=== PATIENT | male | born 1975 | race Two or more races ===

== ENCOUNTER 2025-04-22 02:01 | Inpatient (IN) | payer OTHER ==
[2025-04-22] VITALS (39 sets, daily range): BP systolic 94–128; BP diastolic 53–81; PULSE 71–111; RESP 15–30; TEMP 98–100.4; O2SAT 83–98
[~2025-04-22] VITALS: Ht 182.9 cm; Wt 128.5 kg
[2025-04-22] MEDS: NALOXONE HCL 1MG/ML 2ML SYRINGE ONE ×3 (02:13→04:17)
--- NOTE | 2025-04-22 02:19 | ED.PDOC ---
Altered Mental Status HPI Comments HPI: 49-year-old male came to EMS were altered level of consciousness. Per EMS, initial call of cardiac arrest, upon arrival, family performing CPR on the patient. SO was on scene 1st, and noted that patient has pulses, presenting with pinpoint pupils, and unresponsive to verbal stimuli. Patient was given 6mg of Narcan, (2mg IN, and another 4mg IV) which gradually woke up the patient. No signs of trauma noted. Family members denies the use of any drugs. Per EMS, patient pupils were pinpoint but improved after he was given Narcan in route. When asked what his name is able to answer. Patient was evaluated immediately and given additional four mg of Narcan IV here and he became much more arousable making eye contact and following commands. Initial Vitals BP: HR: RR: O2: Temp: Past Medical History: Denies Past Surgical History: Denies Social History: Denies ETOH, smoking, and drug use. Medications: Allergies: HPI: Poor Historian. REVIEW OF SYSTEMS: Limited given the patient's altered level of consciousness. CONSTITUTIONAL: Denies acute: fever, diaphoresis, chills, generalized weakness. HEAD: Denies acute: headache, photophobia Eyes: Denies acute: Double vision, vision loss, eye pain, eye discharge. EARS: Denies acute: tinnitus, hearing loss, ear discharge, ear pain, THROAT: Denies acute: sore throat, swelling, difficulty swallowing , pain with swallowing, change in voice. NECK: Denies acute: neck pain, neck swelling, stiff neck. HEART: Denies acute : chest pain, palpitations, LUNGS: Denies acute: SOB, wheezing, cough, hemoptysis ABDOMEN: Denies acute: abdominal pain, Nausea, Vomiting, diarrhea, melena , hematemesis, hematochezia SKIN: Denies acute: rash, redness, lesions, itchiness. EXTREMITIES: Denies acute: calf pain, numbness, tingling, weakness, denies pain in extremity. Denies acute: Low back pain. Neuro: Denies acute: focal neurological deficit, motor or sensory focal neurological deficit, tremors, seizure like activity, confusion, dizziness, change in mental status, loss of bowel or bladder function, cauda equina like symptoms. : Denies acute: dysuria, hematuria, flank pain, increase in urinary frequency. PSYCH: Denies acute: hallucination, suicidal ideation, homicidal ideation. PHYSICAL EXAM: General: ---minimally responsive but moving all four extremities. Head: normocephalic, atraumatic. Neck: supple, trachea is midline, no swelling. Throat: Patient vomiting and likely aspirated. Suction was applied immediately and patient was rolled to his right side. Eyes:, no erythema, no purulent discharge, no proptosis, no icterus. Heart: regular rate, regular rhythm, no significant murmur appreciated. Lungs: no apparent respiratory distress, No wheezing, bilateral rhonchi, no crackles. No stridors Abdomen: non distended, soft, no guarding, no rebound, + bowel sounds. Skin: no petechia, no purpura, no cyanosis, non-pale, not jaundice. Lower extremities: --no - Pitting edema no deformity, no focal swelling, no calf TTP. moves all four extremities. Face: no apparent facial droop. Pupils are reactive to light. ED COURSE: DISCLAIMER: This medical document was created using an electronic medical record system with voice recognition software and computerized dictation system. Although this document has been carefully reviewed, there might still be some phonetic and typographical errors. Occasional wrong-word or "sound-alike" substitutions may have occurred due to the inherent limitations of voice recognition software. These areas are purely typographical due to imperfections of the software programs and do not reflect any compromise in the patient's medical care. Please read the chart carefully and recognize, using context, where these substitutions have occurred. Chief Complaint: ALOC Time Seen by MD: 02:18 Reviewed Notes: Clinical Science Liaison Notes Allergies: Coded Allergies: NO KNOWN ALLERGIES (Unverified , 04/22/25) Information Source: Emergency Med Personnel Mode of Arrival: EMS Past Medical History PAST MEDICAL HISTORY: Denies Surgical History: Denies all surgeries Family History Family History: Reviewed,noncontributory to illness Was a procedure done? Was a procedure done?: No Differential Diagnosis (ALOC) Differential Diagnosis: Other (DDX include CVA, TGA, cerebellar ischemia/infarct, carotid stenosis, Intracranial mass/infection/bleed, encephalopathy, electrolyte abnormality, thyroid disease, hydrocephalus, hypoglycemia, drug toxicity, cardiac arrhythmia, seizure, infection in the elderly, Hyperammonemia., kidney failure., sepsis.) X-Ray, Labs, Meds, VS Vital Signs Date Time Temp Pulse Resp B/P (MAP) Pulse Ox O2 Delivery O2 Flow Rate FiO2 04/22/25 11:15 81 109/67 Facial BiPAP Mask 60 04/22/25 10:00 98.0 84 26 107/66 (80) 98 98.0 04/22/25 09:28 Facial BiPAP Mask 80 04/22/25 08:55 105 118/72 Facial BiPAP Mask 50 04/22/25 08:00 111 20 98 Bi-Pap+ 100 100 04/22/25 08:00 97.1 111 20 121/71 (88) 98 97.1 04/22/25 07:03 98.0 97 25 127/78 93 100 98.0 04/22/25 07:03 25 93 Bi-Pap+ 100 100 04/22/25 07:03 97 127/78 Facial BiPAP Mask 100 04/22/25 06:01 28 87 Non-Rebreather 15 100 100 04/22/25 04:00 74 04/22/25 02:12 92 04/22/25 02:01 98.2 88 22 143/82 92 98.2 Lab Test 04/22/25 11:02 04/22/25 08:39 04/22/25 06:22 04/22/25 05:18 Range/Units Blood Gas Specimen Type Arterial Arterial Arterial Blood Gas Sample Site Left radial Right radial Right radial Blood Gas Patient Temperature 37.0 37.0 37.0 Arterial Blood Date Drawn [id number] Arterial Blood pH 7.316 L 7.181 *L 7.194 *L 7.350-7.450 Arterial Blood Partial Pressure CO2 41.2 56.0 H 47.9 35.0-48.0 mmHg Arterial Blood Partial Pressure O2 121.3 H 293.8 H 70.3 L 83.0-108.0 mmHg Arterial Blood HCO3 20.6 L 20.5 L 18.0 L 21.0-28.0 mmol/L Arterial Blood Oxygen Saturation 98.2 H 99.5 H 89.7 L 94.0-98.0 % Arterial Blood Base Excess -5.3 L -8.6 L -10.1 L -2.0-3.0 mmol/L Arterial Blood Oxyhemoglobin 96.8 98.2 H 88.7 L 94.0-98.0 % Arterial Blood Carboxyhemoglobin 0.5 0.4 L 0.4 L 0.5-1.5 % Arterial Blood Methemoglobin 0.9 0.9 0.7 0.0-1.5 % Luis A Test Yes Yes Yes Blood Gas Total Hemoglobin 15.80 16.10 15.10 13.5-17.5 g/dL Blood Gas Set Respiration Rate 12.0 12.0 Blood Gas Modality Mask - bipap Mask - bipap Mask - nrb FiO2 % 80.0 100.0 100.0 Blood Gas EPAP 8 8 Blood Gas IPAP 18 12 Blood Gas Critical Value Read Back Yes Yes Yes Blood Gas Notified Whom Dr. norris kowalski Blood Gas Notified Time [id number] Blood Gas Notified By Blood Gas Liter Flow 15.00 Troponin I High Sensitivity 38 </=54 ng/L Lipase 31 12-53 U/L Test 04/22/25 04:39 04/22/25 03:40 04/22/25 03:25 04/22/25 02:35 Range/Units Lactic Acid Level 4.4 *H 5.2 *H 0.4-2.0 mmol/L Urine Color Colorless Yellow Urine Clarity Clear Clear Urine pH 5.5 5.0-9.0 Urine Specific [place] 1.008 1.001-1.035 Urine Protein Negative Negative Urine Ketones Negative Negative Urine Blood Negative Negative /uL Urine Nitrite Negative Negative Urine Bilirubin Negative Negative Urine Urobilinogen Normal Negative mg/dL Urine Leukocyte Esterase Negative Negative /uL Urine RBC 1 0 - 3 /hpf Urine Microscopic WBC 1 0-3 /HPF Urine Squamous Epithelial Cells None seen <5 /hpf Urine Bacteria None seen None Seen /hpf Urine Hyaline Casts Few 0 - 2 /lpf Urine Glucose 3+ H Normal mg/dL Urine Opiates Screen Neg NEGATIVE Urine Fentanyl Screen Pos NEGATIVE Urine Barbiturates Screen Neg NEGATIVE Urine Phencyclidine Screen Neg NEGATIVE Urine Amphetamines Screen Neg NEGATIVE Urine Benzodiazepines Screen Neg NEGATIVE Urine Cocaine Screen Neg NEGATIVE Urine Cannabinoids Screen Neg NEGATIVE Troponin I High Sensitivity 26 </=54 ng/L Test 04/22/25 02:30 Range/Units White Blood Count 12.4 H 4.4-10.8 10^3/uL Red Blood Count 4.08 L 4.5-5.90 10^6/uL Hemoglobin 12.9 L 13.5-17.5 g/dL Hematocrit 39.2 L 41.0-53.0 % Mean Corpuscular Volume 96.0 80.0-100.0 fL Mean Corpuscular Hemoglobin 31.7 28.0-32.0 pg Mean Corpuscular Hemoglobin Concent 33.0 32.0-36.0 g/dL Red Cell Distribution Width 13.9 11.8-14.3 % Platelet Count 284 140-450 10^3/uL Mean Platelet Volume 7.8 6.9-10.8 fL Neutrophils (%) (Auto) 78.3 37.0-80.0 % Lymphocytes (%) (Auto) 17.3 10.0-50.0 % Monocytes (%) (Auto) 3.6 0.0-12.0 % Eosinophils (%) (Auto) 0.6 0.0-7.0 % Basophils (%) (Auto) 0.2 0.0-2.0 % Neutrophils # (Auto) 9.7 H 1.6-8.6 10 ^3/uL Lymphocytes # (Auto) 2.1 0.4-5.4 10 ^3/uL Monocytes # (Auto) 0.4 0-1.3 10 ^3/uL Eosinophils # (Auto) 0.1 0-0.8 10 ^3/uL Basophils # (Auto) 0 0-0.2 10 ^3/uL Nucleated Red Blood Cells 0.1 % Sodium Level 135 L 136-145 mmol/L Potassium Level 3.4 L 3.5-5.1 mmol/L Chloride Level 102 98-107 mmol/L Carbon Dioxide Level 19 L 20-31 mmol/L Anion Gap 14 5-15 Blood Urea Nitrogen 10 9-23 mg/dL Creatinine 1.14 0.700-1.30 mg/dL Glomerular Filtration Rate Calc 80 >90 mL/min BUN/Creatinine Ratio 8.8 L 10.0-20.0 Serum Glucose 209 H 74-106 mg/dL Calcium Level 7.4 L 8.7-10.4 mg/dL Magnesium Level 2.2 1.6-2.6 mg/dL Total Bilirubin 0.2 0.2-1.0 mg/dL Aspartate Amino Transferase (AST) 41 H 13-40 U/L Alanine Aminotransferase (ALT) 34 7-40 U/L Alkaline Phosphatase 55 46-116 U/L Troponin I High Sensitivity 21 </=54 ng/L Total Protein 6.0 5.7-8.2 g/dL Albumin 3.9 3.2-4.8 g/dL Plasma/Serum Blood Alcohol 150.1 H <10 mg/dL [place] [address] Ph: [phone] DIAGNOSTIC IMAGING Diagnostic Imaging Report : [id number] Signed PATIENT: FELICIANO COLÓN ACCT: [id number] UNIT: [id number] : 1975 LOC: ER ROOM / BED: / AGE / SEX: 49 / M ADM STATUS: REG ER SERVICE 0215 ORDERING PHYSICIAN: JUDY KOWALSKI DO PROCEDURE(s): HWOCT - HEAD WITHOUT CONTRAST REASON: ALOC ORDER NUMBER(s): [id number], ACCESSION NUMBER(s): [id number] EXAM: CT HEAD WITHOUT CONTRAST INDICATION: ALOC TECHNIQUE: CT of the head without intravenous contrast. Radiation Dose : 1. Head: CT Dose: CTDI volume is 59.31 mGy. Dose-length product is 1.71 mGy*cm The dose indicators for CT are the volume Computed Tomography (CT) Dose Index (CTDIvol) and the Dose Length Product (DLP), and are measured in units of mGy and mGy-cm, respectively. These indicators are not patient dose, but values generated from the CT scanner acquisition factors. The report includes radiation exposure data for exposures received during this examination. COMPARISON: None FINDINGS: Brain: No acute hemorrhage, mass effect, or cerebral edema. CSF Spaces: Size and morphology within normal limits. Bones/Soft Tissues: No acute findings. Orbits/Sinuses/Mastoids: Iovg-qi-wdzlwvsw pansinus disease with air-fluid level in the right maxillary sinus. The orbits and mastoid cells are unremarkable. IMPRESSION: 1. No acute intracranial abnormality. 2. Paranasal sinus disease. Radiation optimization: All CT scans at this facility use at least one of these dose optimization techniques: automated exposure control mA and/or kV adjustment per patient size (includes targeted exams where dose is matched to clinical indication) or iterative reconstruction. ATED BY: JUAN BENDER MD DICTATED DATE/TIME: 04/22/25446 SIGNED BY: JUAN BENDER MD SIGNED DATE/TIME: 04/22/25446 CC: [place] [address] Ph: [phone] DIAGNOSTIC IMAGING Diagnostic Imaging Report : [id number] Signed PATIENT: FELICIANO COLÓN ACCT: [id number] UNIT: [id number] : 1975 LOC: ER ROOM / BED: / AGE / SEX: 49 / M ADM STATUS: REG ER SERVICE 021 ORDERING PHYSICIAN: JUDY KOWALSKI DO PROCEDURE(s): CXRP - CHEST PORTABLE REASON: ALOC ORDER NUMBER(s): [id number], ACCESSION NUMBER(s): [id number] CHEST RADIOGRAPH Indication: ALOC Technique: 1 view Comparison: None FINDINGS: Lines and Tubes: None Lungs: Patchy consolidations within the perihilar and bfoel-qygszmf-glil-left upper lungs. Pleura: No effusion or pneumothorax. Cardiomediastinal contours: Unremarkable. Other: No acute osseous abnormality. IMPRESSION: 1. Right worse than left airspace disease suggesting multifocal pneumonia, aspiration or hemorrhage in the appropriate clinical setting. ATED BY: JUAN BENDER MD DICTATED DATE/TIME: 04/22/25442 SIGNED BY: JUAN BENDER MD SIGNED DATE/TIME: 04/22/25442 CC: [place] [address] Ph: [phone] DIAGNOSTIC IMAGING Diagnostic Imaging Report : [id number] Signed PATIENT: FELICIANO COLÓN ACCT: [id number] UNIT: [id number] : 1975 LOC: ER ROOM / BED: / AGE / SEX: 49 / M ADM STATUS: REG ER SERVICE 0506 ORDERING PHYSICIAN: JUDY KOWALSKI DO PROCEDURE(s): CTACH - CT ANGIO CHEST CONTRAST REASON: sob/ cxr findings. ORDER NUMBER(s): [id number], ACCESSION NUMBER(s): [id number] CTA Chest with intravenous contrast INDICATION: sob/ cxr findings. COMPARISON: None TECHNIQUE: Multidetector spiral CTA of the chest was performed of the chest with intravenous contrast. PULMONARY ANGIOGRAPHY PROTOCOL was utilized using a bolus- tracking technique centered on the main pulmonary artery. Axial, coronal and sagittal multiplanar and MIP reformats were performed. Radiation Dose : 1. Chest: CTDI volume is 29.6 mGy. Dose-length product is 2133.63 mGy*cm The dose indicators for CT are the volume Computed Tomography (CT) Dose Index (CTDIvol) and the Dose Length Product (DLP), and are measured in units of mGy and mGy-cm, respectively. These indicators are not patient dose, but values generated from the CT scanner acquisition factors. The report includes radiation exposure data for exposures received during this examination. Findings: Pulmonary artery: No large central or large segmental pulmonary embolism. Patient motion artifact partially obscures detail and limits the ability to exclude smaller and/or more distal segmental and subsegmental pulmonary emboli. The main pulmonary artery measures 2.9 cm and the ascending thoracic aorta measures 3.4 cm. Atherosclerotic vascular calcifications. Lower neck: Normal thyroid. Lungs: Extensive multifocal consolidative infiltrate throughout all lung zones consistent with multifocal pneumonia. No evidence of pleural effusion or pne umothorax. Heart/Vascular Structures: Normal heart size. No pericardial effusion. Lymph Nodes: No adenopathy Musculoskeletal: No acute osseous abnormality. Soft tissues: Normal. Upper abdomen: Limited portions of the upper abdomen are unremarkable. Scattered subcentimeter benign-appearing hepatic cysts. IMPRESSION: 1. No definite large central or large segmental pulmonary embolism. Patient motion artifact obscures detail and limits the ability to exclude smaller and/or more distal segmental and subsegmental pulmonary emboli. 2. Extensive multifocal consolidative pulmonary infiltrate within all lung zones consistent with multifocal pneumonia. 3. Subcentimeter benign-appearing hepatic cysts. ATED BY: JUAN F EDMONDS MD DICTATED DATE/TIME: 04/22/25654 SIGNED BY: JUAN F EDMONDS MD SIGNED DATE/TIME: 04/22/25 0655 CC: Time of 1ST Reevaluation: 02:19 Reevaluation 1ST: Unchanged Time of 2ND Reevaluation: 06:41 Reevaluation 2ND: Improved Patient Education/Counseling: Diagnosis, Treatment Family Education/Counseling: Diagnosis, Treatment Comments Patient Was Evaluated immediately. Suctioning was performed that is patient was vomiting here. Family at bedside later indicated the patient was also aspirating at home when this event happened. Given Solu-Medrol and a breathing treatment and Narcan multiple boluses. Patient was started on antibiotics for aspiration pneumonia. Patient was given fluids. ABG showed patient is acidotic. Two amps of bicarb were ordered. Decadron was ordered and Narcan drip since the patient has been requiring multiple boluses from time to time. Patient was placed on a continuous albuterol nebulizer. CTA angiogram of the chest was obtained to rule out possible PE versus hemorrhage status post CPR. Patient was placed on a BiPAP. Patient is doing significantly better with the BiPAP socks his present. Has improved. He feels much calmer better. We will repeat ABGs were sharply. Patient is given a small dose of Ativan to help him relax because he still feels claustrophobic and feels somewhat anxious. The care of this patient was signed out to my colleague Dr. Warren to reassessed the patient and see if there is a need for intubation. SEPSIS Sepsis Screen Physician Orders Repairer Shoe Sticks (04/22/25 ) Chest Portable (04/22/25 02:15) Electrocardigram (04/22/25 02:15) Head Without Contrast (04/22/25 02:15) Ct Angio Chest Contrast (04/22/25 05:06) Abg W/ Co-Ox (04/22/25 06:14) Abg W/ Co-Ox (04/22/25 07:58) BIPAP (04/22/25 07:00) Vital Signs Date Time Temp Pulse Resp B/P (MAP) Pulse Ox O2 Delivery O2 Flow Rate FiO2 04/22/25 11:15 81 109/67 Facial BiPAP Mask 60 04/22/25 10:00 98.0 84 26 107/66 (80) 98 98.0 04/22/25 09:28 Facial BiPAP Mask 80 04/22/25 08:55 105 118/72 Facial BiPAP Mask 50 8/23/25 08:00 111 20 98 Bi-Pap+ 100 100 04/22/25 08:00 97.1 111 20 121/71 (88) 98 97.1 04/22/25 07:03 98.0 97 25 127/78 93 100 98.0 04/22/25 07:03 25 93 Bi-Pap+ 100 100 04/22/25 07:03 97 127/78 Facial BiPAP Mask 100 04/22/25 06:01 28 87 Non-Rebreather 15 100 100 04/22/25 04:00 74 04/22/25 02:12 92 04/22/25 02:01 98.2 88 22 143/82 92 98.2 Laboratory Tests Test 04/22/25 02:30 04/22/25 02:35 04/22/25 04:39 White Blood Count 12.4 10^3/uL (4.4-10.8) H Lactic Acid Level 5.2 mmol/L (0.4-2.0) *H 4.4 mmol/L (0.4-2.0) *H Departure 1 Departure Time of Disposition: 04:30 Impression: Primary Impression: Drug overdose Additional Impressions: Mild fentanyl abuse Alcohol abuse Altered level of consciousness Aspiration pneumonia Acute respiratory distress Disposition: ADMITTED INPATIENT Admit to: ICU Condition: Critical Discharged With: Self Critical Care Note Critical Care Time?: Yes (>90min-critical care time only) Heart Score Heart Score: Heart Score Response (Comments) Value History N/A 0 EKG N/A 0 Age N/A 0 Risk Factors N/A 0 Troponin N/A 0 Total 0 I personally scribed for JUDY KOWALSKI DO ([email or web address]) on 04/22/25 at 02:19. Electronically submitted by Gordon Bates ([facility]). I personally scribed for JUDY KOWALSKI DO ([email or web address]) on 04/22/25 at 02:19. Electronically submitted by Gordon Bates ([facility]). I personally scribed for JUDY KOWALSKI DO (DVFARMI) on 04/22/25 at 05:15. Electronically submitted by Gordon Bates ([facility]). I personally scribed for JUDY KOWALSKI DO ([email or web address]) on 04/22/25 at 06:22. Electronically submitted by Sid Duarte ([facility]). JUDY KOWALSKI DO Apr 22, 2025 02:19
[2025-04-22] MEDS: PIPERACILLIN-TAZOB 3.375GM 100 ML IV ONE (02:44)
[2025-04-22 02:51] LABS: Hematocrit 39.2 % (41.0-53.0); Hemoglobin 12.9 g/dL (13.5-17.5); Mean Corpuscular Hemoglobin 31.7 pg (28.0-32.0); Mean Corpuscular Volume 96.0 fL (80.0-100.0); Nucleated Red Blood Cells % 0.1 %
[2025-04-22] MEDS: methylPREDNISolone SOD SUCC 125 MG/2 ML VL ONE (03:05)
[2025-04-22] MEDS: methylPREDNISolone SOD SUCC 125 MG/2 ML VL IV ONE (03:05)
[2025-04-22 03:07] LABS: Alanine Aminotransferase 34 U/L (7-40); Albumin 3.9 g/dL (3.2-4.8); Alkaline Phosphatase 55 U/L (46-116); Anion Gap 14 (5-15); BUN/Creatinine Ratio 8.8 (10.0-20.0); Blood Urea Nitrogen 10 mg/dL (9-23); Chloride 102 mmol/L (98-107); Magnesium 2.2 mg/dL (1.6-2.6); Total Protein 6.0 g/dL (5.7-8.2)
[2025-04-22 03:31] LABS: Bilirubin, Total 0.2 mg/dL (0.2-1.0); Calcium 7.4 mg/dL (8.7-10.4); Carbon Dioxide 19 mmol/L (20-31); Glucose 209 mg/dL (74-106); Potassium 3.4 mmol/L (3.5-5.1); Sodium 135 mmol/L (136-145)
[2025-04-22 03:35] LABS: Lactic Acid w/Reflex 5.2 mmol/L (0.4-2.0)
[2025-04-22 03:51] LABS: Urine Protein, UAD Negative (Negative)
[2025-04-22 04:04] LABS: Amphetamine Screen, Urine Neg (NEGATIVE); Barbiturate Scree,Urine Neg (NEGATIVE); Benzodiazephine Screen, Urine Neg (NEGATIVE); Cocaine Screen, Urine Neg (NEGATIVE); Opiate Scree,Urine Neg (NEGATIVE)
[2025-04-22 04:06] LABS: Cannabinoid Screen, Urine Neg (NEGATIVE); Phencyclidine Screen, Urine Neg (NEGATIVE)
--- NOTE | 2025-04-22 04:45 | DVH ---
CHEST RADIOGRAPH Indication: ALOC Technique: 1 view Comparison: None FINDINGS: Lines and Tubes: None Lungs: Patchy consolidations within the perihilar and ijtwk-mdzsamv-vyrh-left upper lungs. Pleura: No effusion or pneumothorax. Cardiomediastinal contours: Unremarkable. Other: No acute osseous abnormality. IMPRESSION: 1. Right worse than left airspace disease suggesting multifocal pneumonia, aspiration or hemorrhage i n the appropriate clinical setting.
--- NOTE | 2025-04-22 04:50 | DVH ---
EXAM: CT HEAD WITHOUT CONTRAST INDICATION: ALOC TECHNIQUE: CT of the head without intravenous contrast. Radiation Dose : 1. Head: CT Dose: CTDI volume is 59.31 mGy. Dose-length product is 1.71 mGy*cm The dose indicators for CT are the volume Computed Tomography (CT) Dose Index (CTDIvol) and the Dose Length Product (DLP), and are measured in units of mGy and mGy-cm, respectively. These indicators are not patient dose, but values generated from the CT scanner acquisition factors. The report includes radiation exposure data for exposures received during this examination. COMPARISON: None FINDINGS: Brain: No acute hemorrhage, mass effect, or cerebral edema. CSF Spaces: Size and morphology within normal limits. Bones/Soft Tissues: No acute findings. Orbits/Sinuses/Mastoids: Ntvz-vc-uvjghaqw pansinus disease with air-fluid level in the right maxillar y sinus. The orbits and mastoid cells are unremarkable. IMPRESSION: 1. No acute intracranial abnormality. 2. Paranasal sinus disease. Radiation optimization: All CT scans at this facility use at least one of these dose optimization kamaljit hniques: automated exposure control mA and/or kV adjustment per patient size (includes targeted exam s where dose is matched to clinical indication) or iterative reconstruction.
[2025-04-22] MEDS: NALOXONE HCL 1MG/ML 2ML SYRINGE IV ONE (05:15)
[2025-04-22] MEDS: IOHEXOL 350 MG/ML 100ML IJ ONE (05:25)
[2025-04-22] MEDS: SODIUM CHLORIDE 0.9% 1,000 ML IV ONE (05:44)
[2025-04-22] MEDS: IPRATROPIUM BROM 0.5 MG/2.5ML INH SOL NEB ONE ×2 (06:01→07:03)
[2025-04-22] MEDS: ALBUTEROL SULF 2.5 MG/0.5ML(0.5%) NEB SOLN NEB ONE ×2 (06:01→07:03)
[2025-04-22] MEDS: SODIUM BICARB 8.4% 50Meq/50ml SYR Vial IV ONE (06:30)
--- NOTE | 2025-04-22 06:57 | DVH ---
CTA Chest with intravenous contrast INDICATION: sob/ cxr findings. COMPARISON: None TECHNIQUE: Multidetector spiral CTA of the chest was performed of the chest with intravenous contrast . PULMONARY ANGIOGRAPHY PROTOCOL was utilized using a bolus-tracking technique centered on the main p ulmonary artery. Axial, coronal and sagittal multiplanar and MIP reformats were performed. Radiation Dose : 1. Chest: CTDI volume is 29.6 mGy. Dose-length product is 2133.63 mGy*cm The dose indicators for CT are the volume Computed Tomography (CT) Dose Index (CTDIvol) and the Dose Length Product (DLP), and are measured in units of mGy and mGy-cm, respectively. These indicators are not patient dose, but values generated from the CT scanner acquisition factors. The report includes radiation exposure data for exposures received during this examination. Findings: Pulmonary artery: No large central or large segmental pulmonary embolism. Patient motion artifact partially obscures de tail and limits the ability to exclude smaller and/or more distal segmental and subsegmental pulmonar y emboli. The main pulmonary artery measures 2.9 cm and the ascending thoracic aorta measures 3.4 cm. Atheroscl erotic vascular calcifications. Lower neck: Normal thyroid. Lungs: Extensive multifocal consolidative infiltrate throughout all lung zones consistent with multif ocal pneumonia. No evidence of pleural effusion or pneumothorax. Heart/Vascular Structures: Normal heart size. No pericardial effusion. Lymph Nodes: No adenopathy Musculoskeletal: No acute osseous abnormality. Soft tissues: Normal. Upper abdomen: Limited portions of the upper abdomen are unremarkable. Scattered subcentimeter benign -appearing hepatic cysts. IMPRESSION: 1. No definite large central or large segmental pulmonary embolism. Patient motion artifact obscures detail and limits the ability to exclude smaller and/or more distal segmental and subsegmental pulmon david emboli. 2. Extensive multifocal consolidative pulmonary infiltrate within all lung zones consistent with mult ifocal pneumonia. 3. Subcentimeter benign-appearing hepatic cysts.
[2025-04-22] MEDS: IPRATROPIUM BROM 0.5 MG/2.5ML INH SOL ONE (07:04)
[2025-04-22] MEDS: ALBUTEROL SULF 2.5 MG/0.5ML(0.5%) NEB SOLN ONE (07:05)
--- NOTE | 2025-04-22 07:12 | ECG ---
[facility] Test Date: 2025-04-22 Test Time: 02:12:31 Pat Name: FELICIANO COLÓN Department: [facility] ED Patient ID: [id number] Room: [address] [place] [address] Gender: M Photovoltaic Installation Technician: TEN : 1975 Requested By: JUDY KOWALSKI Order Number: [id number] Reading MD: Boris Bravo Measurements Intervals [place] Rate: 92 P: -58 FL: 243 QRS: 28 QRSD: 92 T: 9 QT: 391 QTc: 484 Interpretive Statements Sinus or ectopic atrial rhythm Prolonged FL interval RSR' in V1 or V2, probably normal variant Borderline repolarization abnormality Borderline prolonged QT interval Electronically Signed On 04-25-2025 14:35:49 PDT by Boris Bravo Please click the below link to view image of tracing.
[2025-04-22] MEDS: ONDANSETRON HCL 4 MG/2 ML VIAL ONE (07:13)
[2025-04-22 07:35] LABS: Base Excess -10.1 mmol/L (-2.0-3.0)
[2025-04-22] MEDS: LORazepam 2MG/ML-1ML VIAL IV ONE ×2 (07:45→10:54)
[2025-04-22] MEDS: NALOXONE HCL 2 MG in DEXTROSE 495 ML IV ONE (08:26)
[2025-04-22 09:03] LABS: Base Excess -8.6 mmol/L (-2.0-3.0)
[2025-04-22] MEDS ORDERED: ONDANSETRON HCL 4 MG/2 ML VIAL IV PRN (12:00)
[2025-04-22] MEDS ORDERED: MORPHINE SULFATE INJ 2 MG/ml SYRG IV PRN ×2 (12:00)
[2025-04-22] MEDS ORDERED: NITROGLYCERIN 0.4 MG SL TAB SL PRN (12:00)
[2025-04-22 12:42] LABS: Base Excess -5.3 mmol/L (-2.0-3.0)
--- NOTE | 2025-04-22 12:43 | DVHHPRES ---
History of Present Illness Resident Creating Document: RAAD ALVARES RESIDENT History of Present Illness Mr. Heredia, a 49-year-old male was brought in by EMS with altered level of consciousness. Initial EMS dispatch was for cardiac arrest; upon arrival, family was performing CPR. mutual fund analyst noted the patient had a pulse, pinpoint pupils, and was unresponsive to verbal stimuli. Narcan was administered (2 mg IN, 4 mg IV), resulting in gradual improvement in responsiveness. No signs of trauma were observed. Family denied any drug use. En route, EMS noted improvement in pupil size following Narcan. On arrival, the patient was able to answer questions and was given an additional 4 mg IV Narcan, after which he became more alert, made eye contact, and followed commands. Patient is on BIPAP improving ABG. [place] [phone] authorized. PMHX: No chronic disease, not on any home Meds. PSHX: No surgical history. FH: Non contributory. Social History: Lifetime nonsmoker, as per patient occasional Cigar, occasional binge drinking, 12 pack of beer, patient, family, collateral all history negative for any other substance abuse, lifetime, no daily alcohol. As per patient's patient is, CDL, no previous history of any other intoxications. Review of Systems Constitutional: Yes: Chills, Sweats, Weakness, Malaise; No: Fever, Other Eyes: No: Pain, Vision change, Conjunctivae inflammation, Eyelid inflammation, Other, Redness ENT: No: Ear pain, Ear discharge, Nose pain, Nose discharge, Nose congestion, Mouth pain, Mouth swelling, Throat pain, Throat swelling, Other Respiratory: Shortness of breath, SOB with excertion, Wheezing; No: Cough, Dry, Hemoptysis, Pleuritic Pain, Sputum, Wheezing, Other Cardiovascular: No: Chest Pain, Palpitations, Orthopnea, Paroxysmal Noc. Dyspn ea, Edema, Lt Headedness, Other Gastrointestinal: Nausea, Vomiting; No: Abdominal Pain, Diarrhea, Constipation, Melena, Hematochezia, Other Genitourinary: No Dysuria, No Frequency, No Incontinence, No Hematuria, No Retention, No Other Musculoskeletal: No: other, neck pain, shoulder pain, arm pain, back pain, hand pain, leg pain, foot pain Skin: No: Rash, Lesions, Jaundice, Bruising, Other Neurological: No: Weakness, Numbness, Incoordination, Change in speech, Confusion, Seizures, Other Allergies: Coded Allergies: NO KNOWN ALLERGIES (Unverified , 04/22/25) Medications Current Medications Medications Dose Ordered Sig/Ramonita Route Start Time Stop Time Status Last Admin Dose Admin Ondansetron HCl 4 mg Q4HP PRN IV 04/22/25 12:00 Morphine Sulfate 2 mg Q4HPRN PRN IV 04/22/25 12:00 Enoxaparin Sodium 40 mg DAILY SC 04/22/25 12:00 04/27/25 23:55 Nitroglycerin 0.4 mg Q5MINP PRN SL 04/22/25 12:00 Morphine Sulfate 2 mg Q30M PRN IV 04/22/25 12:00 Exam Vital Signs Vital Signs Date Time Temp Pulse Resp B/P (MAP) Pulse Ox O2 Delivery O2 Flow Rate FiO2 04/22/25 11:15 81 109/67 Facial BiPAP Mask 60 04/22/25 08:00 20 98 04/22/25 08:00 97.1 97.1 04/22/25 06:01 15 General Appearance: Alert, Cooperative, mild distress HEENT: Atraumatic, PERRLA, EOMI, Mucous membr. moist/pink, Other (Patient on BIPAP. ) Respiratory: Other (Bilateral equal air movement, crackles, rales. No tenderness. ) Cardiovascular: Regular rate, Normal S1, Normal S2, No murmurs Abdominal: Normal bowel sounds, Soft, No tenderness, No hepatospenomegaly, No masses Extremities: No clubbing, No cyanosis, No edema, Normal pulses, No tenderness/swelling Skin: No rashes, No breakdown, No significant lesion Neuro: Other (Patient is on BiPAP, limited examination bilateral lower leg e xtremity, ophthalmic extremely grossly normal, bilateral upper and lower leg touch sensation, recent. Patient responses with nonverbal commands due to the BiPAP. Denies any pain, numbness, tingling.) Psych/Mental Status: Mental status NL, Other (Limited examination.) Labs/Xrays Labs Test 04/22/25 12:03 04/22/25 08:39 04/22/25 06:22 04/22/25 05:18 Range/Units Blood Gas Specimen Type Arterial Blood Gas Sample Site Right radial Blood Gas Patient Temperature 37.0 Arterial Blood Date Drawn [id number] Arterial Blood pH 7.181 *L 7.350-7.450 Arterial Blood Partial Pressure CO2 56.0 H 35.0-48.0 mmHg Arterial Blood Partial Pressure O2 293.8 H 83.0-108.0 mmHg Arterial Blood HCO3 20.5 L 21.0-28.0 mmol/L Arterial Blood Oxygen Saturation 99.5 H 94.0-98.0 % Arterial Blood Base Excess -8.6 L -2.0-3.0 mmol/L Arterial Blood Oxyhemoglobin 98.2 H 94.0-98.0 % Arterial Blood Carboxyhemoglobin 0.4 L 0.5-1.5 % Arterial Blood Methemoglobin 0.9 0.0-1.5 % Luis A Test Yes Blood Gas Total Hemoglobin 16.10 13.5-17.5 g/dL Blood Gas Set Respiration Rate 12.0 Blood Gas Modality Mask - bipap FiO2 % 100.0 Blood Gas EPAP 8 Blood Gas IPAP 12 Blood Gas Critical Value Read Back Yes Blood Gas Notified Whom Dr. norris rm Blood Gas Notified Time [id number] Blood Gas Notified By Blood Gas Liter Flow 15.00 Troponin I High Sensitivity 38 </=54 ng/L Test 04/22/25 03:40 04/22/25 02:30 Range/Units Urine Color Colorless Yellow Urine Clarity Clear Clear Urine pH 5.5 5.0-9.0 Urine Specific [place] 1.008 1.001-1.035 Urine Protein Negative Negative Urine Ketones Negative Negative Urine Blood Negative Negative /uL Urine Nitrite Negative Negative Urine Bilirubin Negative Negative Urine Urobilinogen Normal Negative mg/dL Urine Leukocyte Esterase Negative Negative /uL Urine RBC 1 0 - 3 /hpf Urine Microscopic WBC 1 0-3 /HPF Urine Squamous Epithelial Cells None seen <5 /hpf Urine Bacteria None seen None Seen /hpf Urine Hyaline Casts Few 0 - 2 /lpf Urine Glucose 3+ H Normal mg/dL Urine Opiates Screen Neg NEGATIVE Urine Fentanyl Screen Pos NEGATIVE Urine Barbiturates Screen Neg NEGATIVE Urine Phencyclidine Screen Neg NEGATIVE Urine Amphetamines Screen Neg NEGATIVE Urine Benzodiazepines Screen Neg NEGATIVE Urine Cocaine Screen Neg NEGATIVE Urine Cannabinoids Screen Neg NEGATIVE White Blood Count 12.4 H 4.4-10.8 10^3/uL Red Blood Count 4.08 L 4.5-5.90 10^6/uL Hemoglobin 12.9 L 13.5-17.5 g/dL Hematocrit 39.2 L 41.0-53.0 % Mean Corpuscular Volume 96.0 80.0-100.0 fL Mean Corpuscular Hemoglobin 31.7 28.0-32.0 pg Mean Corpuscular Hemoglobin Concent 33.0 32.0-36.0 g/dL Red Cell Distribution Width 13.9 11.8-14.3 % Platelet Count 284 140-450 10^3/uL Mean Platelet Volume 7.8 6.9-10.8 fL Neutrophils (%) (Auto) 78.3 37.0-80.0 % Lymphocytes (%) (Auto) 17.3 10.0-50.0 % Monocytes (%) (Auto) 3.6 0.0-12.0 % Eosinophils (%) (Auto) 0.6 0.0-7.0 % Basophils (%) (Auto) 0.2 0.0-2.0 % Neutrophils # (Auto) 9.7 H 1.6-8.6 10 ^3/uL Lymphocytes # (Auto) 2.1 0.4-5.4 10 ^3/uL Monocytes # (Auto) 0.4 0-1.3 10 ^3/uL Eosinophils # (Auto) 0.1 0-0.8 10 ^3/uL Basophils # (Auto) 0 0-0.2 10 ^3/uL Nucleated Red Blood Cells 0.1 % Sodium Level 135 L 136-145 mmol/L Potassium Level 3.4 L 3.5-5.1 mmol/L Chloride Level 102 98-107 mmol/L Carbon Dioxide Level 19 L 20-31 mmol/L Anion Gap 14 5-15 Blood Urea Nitrogen 10 9-23 mg/dL Creatinine 1.14 0.700-1.30 mg/dL Glomerular Filtration Rate Calc 80 >90 mL/min BUN/Creatinine Ratio 8.8 L 10.0-20.0 Serum Glucose 209 H 74-106 mg/dL Calcium Level 7.4 L 8.7-10.4 mg/dL Magnesium Level 2.2 1.6-2.6 mg/dL Total Bilirubin 0.2 0.2-1.0 mg/dL Aspartate Amino Transferase (AST) 41 H 13-40 U/L Alanine Aminotransferase (ALT) 34 7-40 U/L Alkaline Phosphatase 55 46-116 U/L Total Protein 6.0 5.7-8.2 g/dL Albumin 3.9 3.2-4.8 g/dL Plasma/Serum Blood Alcohol 150.1 H <10 mg/dL SEPSIS Sepsis Screen Date sepsis recognized/suspect: Apr 22, 2025 Time Sepsis recognized/suspect: 08 Recent Procedure: No On Antibiotic Therapy: No Respiratory Rate >20: No Heart Rate >90: No Temp<36 C (96.8 F) or >38.3 C: No SBP <90 or MAP <65 mmHG: No New Acute Mental Status Change: No Is the patient on CPAP, BIPAP,: No Physician Orders Ct Angio Chest Contrast (04/22/25 05:06) Abg W/ Co-Ox (04/22/25 06:14) Abg W/ Co-Ox (04/22/25 07:58) BIPAP (04/22/25 07:00) Admit (04/22/25 11:50) Allergies (04/22/25 11:50) Code Status (04/22/25 11:50) Oxygen Per Hour (04/22/25 11:50) Ondansetron Hcl (Zofran) (04/22/25 12:00) Fall Risk Precautions In Place QSHIFT (04/22/25 11:50) Complete Blood Count (04/23/25 04:00) Comprehensive Metabolic Panel (04/23/25 04:00) Npo (Nothing By Mouth) Diet (04/22/25 Lunch) Echo 2d Mode Cardiac Dop (04/22/25 11:50) Condition: Critical (04/22/25 11:50) Bedrest With Bathroom Privileg (04/22/25 11:50) Morphine Sulfate Injection (04/22/25 12:00) Enoxaparin Sodium (Lovenox) (04/22/25 12:00) Nitroglycerin Sublingual (Ntrostat Subli (04/22/25 12:00) Morphine Sulfate Injection (04/22/25 12:00) Oxygen By Nasal Cannula (04/22/25 11:50) Stat Ekg For Chest Pain (04/22/25 11:50) Notify Md Of Changes From Base (04/22/25 11:50) Credit Authorizer For 24 Hours (04/22/25 11:50) Emergency Dysrhythmia Protocol (04/22/25 11:50) Rhythm Strips Once Every Shift (04/22/25 11:50) Lactic Acid W/ Reflex Order (04/22/25 11:55) Lipase (04/22/25 11:55) Respiratory Culture W/ Gs (04/22/25 12:02) Mrsa Screen (04/22/25 12:02) Covid19 Antigen Anel (04/22/25 ) Rapid Influenza A&B (04/22/25 12:02) Vital Signs Date Time Temp Pulse Resp B/P (MAP) Pulse Ox O2 Delivery O2 Flow Rate FiO2 04/22/25 11:15 81 109/67 Facial BiPAP Mask 60 04/22/25 09:28 Facial BiPAP Mask 80 04/22/25 08:55 105 118/72 Facial BiPAP Mask 50 04/22/25 08:00 111 20 98 Bi-Pap+ 100 100 04/22/25 08:00 97.1 111 20 121/71 (88) 98 97.1 04/22/25 07:03 25 93 Bi-Pap+ 100 100 04/22/25 07:03 97 127/78 Facial BiPAP Mask 100 04/22/25 06:01 28 87 Non-Rebreather 15 100 100 Laboratory Tests Test 04/22/25 02:30 04/22/25 02:35 04/22/25 04:39 04/22/25 12:03 White Blood Count 12.4 10^3/uL (4.4-10.8) H Lactic Acid Level 5.2 mmol/L (0.4-2.0) *H 4.4 mmol/L (0.4-2.0) *H Pending Medications Medications Dose Ordered Sig/Ramonita Route Start Time Stop Time Status Last Admin Dose Admin Albuterol 2.5 mg ONCE ONCE NEB 04/22/25 05:15 04/22/25 05:16 DC 04/22/25 06:01 2.5 MG Albuterol 20 mg ONCE ONCE NEB 04/22/25 06:45 04/22/25 06:46 DC 04/22/25 07:03 20 MG Dexamethasone Sodium Phosphate 20 mg ONCE ONCE IV 04/22/25 06:30 04/22/25 06:31 DC 04/22/25 06:30 20 MG Ipratropium [place] 0.5 mg ONCE ONCE NEB 04/22/25 05:15 04/22/25 05:16 DC 04/22/25 06:01 0.5 MG Ipratropium [place] 1 mg ONCE ONCE NEB 04/22/25 06:45 04/22/25 06:46 DC 04/22/25 07:03 1 MG Lorazepam 0.5 mg ONCE ONCE IV 04/22/25 07:30 04/22/25 07:31 DC 04/22/25 07:45 0.5 MG Lorazepam 0.5 mg ONCE ONCE IV 04/22/25 10:15 04/22/25 10:16 DC 04/22/25 10:54 0.5 MG Methylprednisolone Sodium Succinate 125 mg ONCE ONCE IV 04/22/25 03:00 04/22/25 03:01 DC 04/22/25 03:05 125 MG Naloxone HCl 4 mg ONCE ONCE IV 04/22/25 05:15 04/22/25 05:16 DC 04/22/25 05:15 4 MG Naloxone HCl 4 mg STK-MED ONCE .ROUTE 04/22/25 02:13 04/22/25 02:10 DC 04/22/25 02:13 4 MG Naloxone HCl 4 mg STK-MED ONCE .ROUTE 04/22/25 02:56 04/22/25 02:53 DC 04/22/25 03:05 4 MG Naloxone HCl 4 mg STK-MED ONCE .ROUTE 04/22/25 04:17 04/22/25 04:14 DC 04/22/25 04:17 4 MG Ondansetron HCl 8 mg STK-MED ONCE .ROUTE 04/22/25 07:09 04/22/25 07:06 DC 04/22/25 07:13 8 MG Piperacillin Sod/ Tazobactam Sod 100 ml @ 100 mls/hr ONCE ONCE IV 04/22/25 02:30 04/22/25 03:29 DC 04/22/25 02:44 100 MLS/HR Sodium Bicarbonate 100 ml ONCE ONCE IV 04/22/25 06:30 04/22/25 06:31 DC 04/22/25 06:30 100 ML Sodium Chloride 1,000 ml @ 1,000 mls/hr Q1H ONCE IV 04/22/25 04:00 04/22/25 04:59 DC 04/22/25 05:44 1,000 MLS/HR Assessment/Plan Assessment/Plan #Aspiration pneumonia Gram +ve/ Gram-ve/ atypical: Blood culture, sputum culture, MRSA check, viral panel, IV antibiotics azithromycin and ceftriaxone to continue. CXR shows right worse than left, multifocal pneumonia. #Sepsis, at presentation SIRS response With leukocytosis, tachypnea and tachycardia, with possible intrathoracic source. sepsis bundle with IV fluids, careful hydration restrictive due to secondary risk of ARDS , keep a MAP over 65. Ruled out other infections , UTI. follow up CBC. #Hypoxic / hypercapnic respiratory failure: On BiPAP improving, in recent blood gas. Wean BiPAP. Target SpO2> 94%, discussed with RT at bedside. CTPE Ruled out PE. #Cardiac arrest, less likely, workup in progress: Troponin negative, EKG unremarkable for acute ST-T changes, keep the patient on telemetry, close monito ring, echo, keeping MAP over 65. No known cardiac disease or cardiovascular risk factors noted so far. #metabolic/ toxic encephalopathy: Likely due to multifactorial severe disease, Altered level of conscious, alcohol intoxication. Head noncontrast CT negative, interval neurological function improved. Denies any focal neuro deficits. #Non anion gap metabolic acidosis: Likely due to above , multifactorial, lactic acidosis, trending down, repeat. #Acute alcohol intoxication: Patient admitted having a binge drinking with 12 pack beer at home. As per the patient and the family corroborated no long-term daily alcohol abuse. Bedside counseling done for alcohol-related health side effects, counseling for alcohol cessation. No prior history of alcohol related hospitalization, rehab, ICU / intubation care. #Mild hypokalemia: Could be due to vomiting, replenished, recheck. #Mild hypocalcemia, 7.4: Replenished, recheck. #Borderline QT prolongation, keep magnesium above 2, potassium above 4, close monitoring. Avoid QT prolonging drugs. Possible Right axis deviation. #Subcentimeter benign-appearing hepatic cysts. [place] Barriers to discharge: medical management ongoing, ICU level of care, within next 24-48 hours downgrade to the [facility]. Case discussed with Dr. Flowers. Code status: Full code. Complex patient care discussion needed total 39 minutes. Discussed with the daughter, , at bedside, and the patient, improved mentation. Plan discussed with: Patient, Spouse, Daughter, Other (Primary team RN) My Orders Orders - GIORGIO,RAAD RESIDENT Procedure Category Date Status Time Admit ADMIT 04/22/25 Transmitted 11:50 Allergies KJ 04/22/25 In Process 11:50 Code Status CODE 04/22/25 Transmitted 11:50 Oxygen Per Hour RT 04/22/25 Transmitted 11:50 Ondansetron Hcl PHA 04/22/25 In Process (Zofran) 12:00 Fall Risk Precautions KJ 04/22/[address] 11:50 Complete Blood Count LAB 04/23/25 Verified 04:00 Comprehensive LAB 04/23/25 Verified Metabolic Panel 04:00 Npo (Nothing By DIET 04/22/25 Transmitted Mouth) Diet Lunch Echo 2d Mode Cardiac US 04/22/25 Logged DOP 11:50 Condition: Critical KJ 04/22/25 In Process 11:50 Bedrest With Bathroom KJ 04/22/25 In Process Privileg 11:50 Morphine Sulfate PHA 04/22/25 In Process Injection 12:00 Enoxaparin Sodium PHA 04/22/25 In Process (Lovenox) 12:00 Nitroglycerin PHA 04/22/25 In Process Sublingual (Ntrostat 12:00 Morphine Sulfate PHA 04/22/25 In Process Injection 12:00 Oxygen By Nasal RT 04/22/25 Transmitted Cannula 11:50 Stat Ekg For Chest KJ 04/22/25 In Process Pain 11:50 Notify Of Changes KJ 04/22/25 In Process From Base 11:50 Credit Authorizer For KJ 04/22/25 In Process 24 Hours 11:50 Emergency Dysrhythmia KJ 04/22/25 In Process Protocol 11:50 Rhythm Strips Once KJ 04/22/25 In Process Every Shift 11:50 Lactic Acid W/ Reflex LAB 04/22/25 In Process Order 11:55 Lipase LAB 04/22/25 In Process 11:55 Respiratory Culture KHANH 04/22/25 Logged W/ Gs 12:02 Mrsa Screen KHANH 04/22/25 Logged 12:02 Covid19 Antigen Anel LAB 04/22/25 Logged Rapid Influenza A&B LAB 04/22/25 Logged 12:02 Date of Service: Apr 22, 2025 Billing Provider: MUKUND FLOWERS MD Common Visit Codes: [id number] INP/OBS CARE (HIGH) Secondary Visit Codes: [id number] CARE PLAN 30 MINUTES RAAD ALVARES RESIDENT Apr 22, 2025 12:43
[2025-04-22 13:04] LABS: Lactic Acid w/Reflex 6.6 mmol/L (0.4-2.0)
[2025-04-22] MEDS: LACTATED RINGER'S 500 ML IV ONE (13:15)
[2025-04-22] MEDS: DOXYCYCLINE 100MG/100ML 100 ML IV SCH (13:39)
[2025-04-22] MEDS: ENOXAPARIN SOD 40 MG/0.4 ML SYRINGE SC SCH (13:40)
[2025-04-22 14:40] LABS: COVID19 ANTIGEN SOFIA FIA NEGATIVE (NEGATIVE)
[2025-04-22] MEDS: LACTATED RINGER'S 1,000 ML IV SCH (14:43)
[2025-04-22] MEDS: CALCIUM GLUC 1,000mg/50ml-NS 50 ML IV ONE (14:43)
[2025-04-22] MEDS: THIAMINE 100mg/ml INJ (200mg/2ml VIAL) IV ONE (14:43)
[2025-04-22] MEDS: LORazepam 2MG/ML-1ML VIAL IV PRN (14:43)
[2025-04-22] MEDS: FOLIC ACID 1 MG in D5W 5% 50 ML INJ ONE (16:10)
[2025-04-22 16:15] LABS: Lactic Acid w/Reflex 7.8 mmol/L (0.4-2.0)
--- NOTE | 2025-04-22 17:36 | DVHSR ---
APPROVED REPORT EXAM: Two-dimensional and M-mode echocardiogram with Doppler and color Doppler. Blood Pressure: 109/67 mmHg INDICATION Rule out structural heart disease RISK FACTORS Height: , Weight: DIMENSIONS LVDd4.8 (3.8-5.7cm)LA (2D)3.8 (1.9-4.0cm)Aortic Root4.3 (2.0-3.7cm) LVDs3.3 (2.5-4.0cm)LA (MM) (1.9-4.0cm)Aortic Cusp Exc2.3 (1.5-2.0cm) EF (%) 60.0 (55-70%)Rt. Atrium4.2 (1.9-4.0cm)Asc. Aorta3.4 cm IVSd1.0 (0.7-1.1cm)RV (D) (1.8-2.4cm) PWd0.9 (0.7-1.1cm) Mitral Valve MitralMitral Stenosis E wave0.77m/sMV Mean GR.mmHg A wave0.73m/sMV Peak GR.mmHg E/A ratio1.12D MVAcm2 DECEL [id number] 1/2 Tim[place] Aortic Valve Aortic ValveAortic Stenosis V10.93m/Jethro Mean GR.3mmHg V21.26m/Jethro Peak GR.6mmHg LVOT Diameter2.3 (1.8-2.4cm)Doppler AVA3.07cm2 Pulmonic Valve V20.97m/s Other Information Technically limited study due to body habitus, patient sitting up on bipap. Conclusion lvef 65% normal rv functon normal atria no severe valve abnormalities noted
[2025-04-22] MEDS: ACETAMINOPHEN 325 MG TAB PO PRN (18:01)
[2025-04-23] VITALS (33 sets, daily range): BP systolic 103–143; BP diastolic 49–84; PULSE 77–107; RESP 24–39; TEMP 98.8–100.1; O2SAT 89–99
[2025-04-23 03:51] LABS: Hematocrit 41.4 % (41.0-53.0); Hemoglobin 14.1 g/dL (13.5-17.5); Mean Corpuscular Hemoglobin 32.1 pg (28.0-32.0); Mean Corpuscular Volume 93.8 fL (80.0-100.0); Nucleated Red Blood Cells % 0.0 %
[2025-04-23 04:09] LABS: Alanine Aminotransferase 34 U/L (7-40); Albumin 3.9 g/dL (3.2-4.8); Anion Gap 10 (5-15); BUN/Creatinine Ratio 9.4 (10.0-20.0); Bilirubin, Total 0.6 mg/dL (0.2-1.0); Carbon Dioxide 27 mmol/L (20-31); Chloride 102 mmol/L (98-107); Potassium 4.4 mmol/L (3.5-5.1); Sodium 139 mmol/L (136-145); Total Protein 6.5 g/dL (5.7-8.2)
[2025-04-23 04:10] LABS: Alkaline Phosphatase 36 U/L (46-116); Blood Urea Nitrogen 8 mg/dL (9-23); Calcium 8.6 mg/dL (8.7-10.4); Glucose 134 mg/dL (74-106)
--- NOTE | 2025-04-23 05:36 | DVH ---
CHEST RADIOGRAPH Indication: SOB Technique: 1 view Comparison: XY CHEST PORTABLE on DOS: 04/22/25 FINDINGS: Lines and Tubes: External leads and tubing. Lungs/Pleura: Unchanged. Cardiomediastinum: Unchanged. Other: Unchanged. IMPRESSION: 1. No significant change from the previous study. Persistent bilateral multifocal airspace disease.
[2025-04-23] MEDS: LORazepam 2MG/ML-1ML VIAL IV ONE (08:01)
[2025-04-23 08:12] LABS: Base Excess 0.2 mmol/L (-2.0-3.0)
[2025-04-23] MEDS ORDERED: THIAMINE 100mg/ml INJ (200mg/2ml VIAL) IV SCH (10:00)
[2025-04-23] MEDS: THIAMINE HCL 100 MG TAB PO SCH (10:02)
[2025-04-23] MEDS: FOLIC ACID 1 MG TAB PO SCH (10:02)
[2025-04-23] MEDS: IPRATROPIUM BROM 0.5 MG/2.5ML INH SOL NEB SCH (11:36)
[2025-04-23] MEDS: ALBUTEROL SULF 2.5 MG/0.5ML(0.5%) NEB SOLN NEB SCH (11:37)
[2025-04-23] MEDS: PIPERACILLIN-TAZO 4.5GM 100 ML IV SCH (11:39)
[2025-04-23] MEDS: BUMETANIDE 2.5mg/10ml (0.25 mg/ml) INJ IV ONE (11:39)
--- NOTE | 2025-04-23 13:53 | DVHPN2 ---
Subjective Seen and examined at bedside. Patients spouse and sister at bedside. 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 Per family, patient is usually in good health and is active. But patient reports he has been having cold like symptoms for the past 7 days and did not seek treatment. Will attempt to take off BIPAP and try High Flow 60/90%. Patient and family advised if no improvement or worsening of symptoms will need to intubate. Changes from previous H/P or p: No Changes Eyes: No Pain, No Vision change, No Conjunctivae inflammation, No Eyelid inflammation, No Other, No Redness ENT: No Ear pain, No Ear discharge, No Nose pain, No Nose discharge, No Nose congestion, No Mouth pain, No Mouth swelling, No Throat pain, No Throat swelling, No Other Cardiovascular: No Chest Pain, No Palpitations, No Orthopnea, No Paroxysmal Noc. Dyspnea, No Edema, No Lt Headedness, No Other Respiratory: No Cough, No Dry; Shortness of breath, SOB with excertion, W heezing; No Hemoptysis, No Pleuritic Pain, No Sputum, No Other Gastrointestinal: No Nausea, No Vomiting, No Abdominal Pain, No Diarrhea, No Constipation, No Melena, No Hematochezia, No Other Genitourinary: No Dysuria, No Frequency, No Incontinence, No Hematuria, No Retention, No Other Musculoskeletal: No other, No neck pain, No shoulder pain, No arm pain, No back pain, No hand pain, No leg pain, No foot pain Skin: No Rash, No Lesions, No Jaundice, No Bruising, No Other Objective Vitals Vital Signs Date Time Temp Pulse Resp B/P (MAP) Pulse Ox O2 Delivery O2 Flow Rate FiO2 04/23/25 11:39 127/49 04/23/25 11:37 100 95 Nasal BiPAP Mask 90 04/23/25 09:00 29 04/23/25 08:00 98.8 98.8 04/22/25 20:00 15 Intake/Output Intake and Output 04/23/25 07:00 Intake Total 3600 ml Output Total 5250 ml Balance -1650 ml Intake Oral 75 ml IV Total 3525 ml Output Urine Total 5250 ml Exam Gen: in bed, mild distress Cvs: N S1/S2, RRR Resp: Coarse breath sounds and wheezy Abd: Soft, NT Decorating Supervisor: AAO x 4 Medications Current Medications Medications Dose Ordered Sig/Ramonita Route Start Time Stop Time Status Last Admin Dose Admin Ondansetron HCl 4 mg Q4HP PRN IV 04/22/25 12:00 Morphine Sulfate 2 mg Q4HPRN PRN IV 04/22/25 12:00 Enoxaparin Sodium 40 mg DAILY SC 04/22/25 12:00 04/27/25 23:55 04/23/25 10:02 40 MG Nitroglycerin 0.4 mg Q5MINP PRN SL 04/22/25 12:00 Morphine Sulfate 2 mg Q30M PRN IV 04/22/25 12:00 Doxycycline Hyclate 100 ml @ 50 mls/hr Q12H IV 04/22/25 12:45 04/23/25 11:57 50 MLS/HR Thiamine HCl 100 mg DAILY IV 04/23/25 10:00 UNV Thiamine HCl 100 mg DAILY PO 04/23/25 10:00 04/23/25 10:02 100 MG Lorazepam 1 mg Q4HP PRN IV 04/22/25 14:15 04/23/25 11:39 1 MG Folic Acid 1 mg DAILY PO 04/23/25 10:00 04/23/25 10:02 1 MG Acetaminophen 650 mg Q6HP PRN PO 04/22/25 18:00 04/22/25 18:01 650 MG Albuterol 2.5 mg Q6HR NEB 04/23/25 12:00 04/23/25 11:37 2.5 MG Ipratropium [place] 0.5 mg Q6HR NEB 04/23/25 12:00 04/23/25 11:36 0.5 MG Piperacillin Sod/ Tazobactam Sod 100 ml @ 25 mls/hr Q6HR IV 04/23/25 12:00 04/23/25 11:39 25 MLS/HR Laboratory Results Laboratory Tests 04/23/25 03:04 Chemistry Test 04/23/25 03:04 Albumin 3.9 g/dL (3.2-4.8) Calcium Level 8.6 mg/dL (8.7-10.4) L Total Protein 6.5 g/dL (5.7-8.2) LFT Test 04/23/25 03:04 Alanine Aminotransferase (ALT) 34 U/L (7-40) Alkaline Phosphatase 36 U/L (46-116) L Aspartate Amino Transferase (AST) 60 U/L (13-40) H Total Bilirubin 0.6 mg/dL (0.2-1.0) Urinalysis Test 04/22/25 03:40 Urine Color Colorless (Yellow) Urine Clarity Clear (Clear) Urine pH 5.5 (5.0-9.0) Urine Specific [place] 1.008 (1.001-1.035) Urine Protein Negative (Negative) Urine Ketones Negative (Negative) Urine Blood Negative /uL (Negative) Urine Nitrite Negative (Negative) Urine Bilirubin Negative (Negative) Urine Urobilinogen Normal mg/dL (Negative) Urine Leukocyte Esterase Negative /uL (Negative) Urine RBC 1 /hpf (0 - 3) Urine Microscopic WBC 1 /HPF (0-3) Urine Squamous Epithelial Cells None seen /hpf (<5) Urine Bacteria None seen /hpf (None Seen) Urine Hyaline Casts Few /lpf (0 - 2) Urine Glucose 3+ mg/dL (Normal) H Blood Gas Results Test 04/23/25 05:33 Arterial Blood pH 7.324 (7.350-7.450) FiO2 % 90.0 Microbiology Microbiology Date/Time Source Procedure Growth Status 04/22/25 13:30 Nose MRSA Screen - Final Complete Assessment/Plan Assessment/Plan # Acute Hypoxic Resp Failure - On BIPAP, attempt HiFlow # Sepsis due to Aspiration PNA - Zosyn and Doxy - Sputum Cultures # Alcohol withdrawal - Last drink was 04/21/25 - MVT/Thiamine/Folic Acid # Possible Pulm Edema?? - Bumex IV Critical care time 90 mins Unstable to transfer to [place] due to resp failure. Plan discussed with: Patient, Spouse, Other (sister) My Orders Orders - MUKUND JESSICA MD Procedure Category Date Status Time Albuterol Medneb PHA 04/23/25 In Process (Ventolin Medneb) 12:00 Ipratropium Medneb PHA 04/23/25 In Process (Atrovent Medneb) 12:00 Respiratory Culture KHANH 04/23/25 In Process W/ Gs 10:57 Sputum Induction RT 04/23/25 Logged 10:57 Piperacillin-Tazo PHA 04/23/25 In Process 4.5gm (Zosyn 4.5gm/100 12:00 Basic Metabolic Panel LAB 04/24/25 Verified 04:00 Complete Blood Count LAB 04/24/25 Verified 04:00 Lactic Acid W/ Reflex LAB 04/24/25 Verified Order 04:00 B-Type Natriuretic LAB 04/24/25 Verified Peptide 04:00 * Stucco Worker CONS 04/23/25 Transmitted Consult Bumetanide Injection PHA 04/23/25 Logged (Bumex Injection) 18:00 Bumetanide Injection PHA 04/23/25 Transmitted (Bumex Injection) 14:45 Hiv 1&2 Antibody LAB 04/23/25 Logged 13:44 Hemoglobin A1c LAB 04/23/25 Logged 13:44 Prothrombin Time W/ LAB 04/24/25 Verified INR 04:00 Partial LAB 04/24/25 Verified Thromboplastin Time 04:00 Thyroid Stimulating LAB 04/23/25 Logged Hormone 13:44 Chest Portable XY 04/24/25 Logged 04:00 Bilat Lower Dvt US 04/23/25 Transmitted 13:47 Date of Service: Apr 23, 2025 Billing Provider: MUKUND JESSICA MD Common Visit Codes: [id number] CARE 30-74 MIN, [id number] CARE-EACH +30MIN MUKUND JESSICA MD Apr 23, 2025 13:53
--- NOTE | 2025-04-23 14:27 | DVH ---
Bilateral lower extremity venous duplex Clinical History: dvt Comparison: None Technique: Duplex Doppler evaluation of the deep venous systems of both lower extremities from the common femora l veins to the popliteal veins including color Doppler and spectral/pulsed waveform analysis was perf ormed. Findings: RIGHT SIDE: The common femoral vein demonstrates appropriate compressibility and waveform variability. There is compressibility/patency of the great saphenous vein at the proximal thigh. The femoral vein demonstrates appropriate compressibility and waveform variability. The deep femoral vein demonstrates appropriate compressibility and waveform variability. The popliteal vein demonstrates appropriate compressibility and waveform variability. There is normal compressibility at the tibioperoneal trunk. LEFT SIDE: The common femoral vein demonstrates appropriate compressibility and waveform variability. There is compressibility/patency of the great saphenous vein at the proximal thigh. The femoral vein demonstrates appropriate compressibility and waveform variability. The deep femoral vein demonstrates appropriate compressibility and waveform variability. The popliteal vein demonstrates appropriate compressibility and waveform variability. There is normal compressibility at the tibioperoneal trunk. Impression: 1. No right or left femoropopliteal venous thrombosis.
[2025-04-23] MEDS: BUMETANIDE 1mg/4ml VIAL (0.25mg/ml) IV ONE (15:42)
[2025-04-23] MEDS: BUMETANIDE 1mg/4ml VIAL (0.25mg/ml) IV SCH (17:38)
[2025-04-23] MEDS ORDERED: DEXMEDETOMIDINE HCL IN D5W 100 ML IV SCH (19:45)
[2025-04-23] MEDS: POTASSIUM CHL 20 Meq TABLET PO ONE (21:08)
--- NOTE | 2025-04-23 22:57 | DVHPN2 ---
Progress Note - Dictate Date Seen: Apr 23, 2025 Medical Necessity Reason Pt with a Central, PICC or Fol: Yes The following are medically ne: Munoz Catheter Reason for munoz catheter: Strict I&O Subjective Patient seen and examined at bedside. On supplemental oxygen Overnight events reviewed. vital signs Vital Sign Date Time Temp Pulse Resp B/P (MAP) Pulse Ox O2 Delivery O2 Flow Rate FiO2 04/23/25 22:00 87 04/23/25 22:00 39 98 Hi-Flow Heated NC+ 55 90 90 04/23/25 22:00 110/60 (77) 04/23/25 20:00 98.9 98.9 Total Intake and Output 04/22/25 04/22/25 04/23/25 15:00 23:00 07:00 Intake Total 1275 ml 1225 ml 1100 ml Output Total 2500 ml 2750 ml Balance 1275 ml -1275 ml -1650 ml medications Current Medications Medications Dose Ordered Sig/Ramonita Route Start Time Stop Time Status Last Admin Dose Admin Ondansetron HCl 4 mg Q4HP PRN IV 04/22/25 12:00 Morphine Sulfate 2 mg Q4HPRN PRN IV 04/22/25 12:00 Enoxaparin Sodium 40 mg DAILY SC 04/22/25 12:00 04/27/25 23:55 04/23/25 10:02 40 MG Nitroglycerin 0.4 mg Q5MINP PRN SL 04/22/25 12:00 Morphine Sulfate 2 mg Q30M PRN IV 04/22/25 12:00 Doxycycline Hyclate 100 ml @ 50 mls/hr Q12H IV 04/22/25 12:45 04/23/25 11:57 50 MLS/HR Thiamine HCl 100 mg DAILY IV 04/23/25 10:00 UNV Thiamine HCl 100 mg DAILY PO 04/23/25 10:00 04/23/25 10:02 100 MG Lorazepam 1 mg Q4HP PRN IV 04/22/25 14:15 04/23/25 17:38 1 MG Folic Acid 1 mg DAILY PO 04/23/25 10:00 04/23/25 10:02 1 MG Acetaminophen 650 mg Q6HP PRN PO 04/22/25 18:00 04/22/25 18:01 650 MG Albuterol 2.5 mg Q6HR NEB 04/23/25 12:00 04/23/25 18:19 2.5 MG Ipratropium [place] 0.5 mg Q6HR NEB 04/23/25 12:00 04/23/25 18:19 0.5 MG Piperacillin Sod/ Tazobactam Sod 100 ml @ 25 mls/hr Q6HR IV 04/23/25 12:00 04/23/25 17:38 25 MLS/HR Bumetanide 1 mg BIDD IV 04/23/25 18:00 04/23/25 17:38 1 MG objective Gen.: Patient lying in bed in no apparent distress. On supplemental oxygen. Head: Normocephalic, atraumatic. Eyes: EOMI/PERRLA. Ears: Normal hearing. Normal anatomy. Neck/trachea: Trachea midline, supple. Nose: Normal external anatomy. Mouth: Moist mucous membranes. Chest: Decreased air entry bilaterally. No wheezing or rhonchi. Cardiovascular: Positive S1, positive S2. Regular rate and rhythm. Abdomen: Positive bowel sounds in all 4 quadrants. Soft, non-tender, non- distended. : Deferred. Rectal: Deferred. Skin: Warm, dry. Intact. Extremities: 2+ radial pulses bilaterally. No lower extremity edema. Neuro: Awake, alert, oriented x3. No gross motor or sensory deficits. Cranial nerves II through XII intact. Gait not assessed. laboratory and microbiology Laboratory Tests 04/23/25 03:04 Test 04/23/25 03:04 Range/Units Serum Glucose 134 H 74-106 mg/dL Assessment/Plan Impression: Acute hypoxic respiratory failure Dependence on supplemental oxygen Multifocal pneumonia Atelectasis Lactic acidosis Plan: Patient transitioned from BiPAP Currently on high flow O2 at 60 LPM, FiO2 90% Titrate to keep O2 sats above 92%. Taper O2 as tolerated, transition to low flow BiPAP PRN Monitor respiratory status closely d/t increased oxygen requirements CXR notable for persistent bilateral multifocal airspace disease. Continue bronchodilators. Continue antibiotics Incentive spirometry Diurese with Bumex as tolerated Monitor renal function. Monitor electrolytes. Supplement as necessary. Monitor ins and outs. Lactic acid level normalized. DVT prophylaxis. Prognosis: Poor given patient's multiple co-morbidities. Condition: Critical Rest of plan per hospitalist and other consultants. A total of 35 minutes of critical care time was spent reviewing the patient record, examining the patient, making a diagnostic and therapeutic plan, discussing this plan with the medical personnel, following up on diagnostic studies and following the patient for clinical stability excluding any and all procedures. At least 50% of this time was spent in direct, [id number] contact. Thank you, Dr. Dumont, for allowing me to participate in this patient's care. Further recommendations will depend on the patient's clinical course. Please do not hesitate to contact me if you have any questions or concerns. This medical document was created using an electronic medical record system with [employer] dictation system. Although these documentations are being carefully reviewed, there may still be some phonetic and typographical changes. The errors are purely typographical, due to imperfection on the software program, and do not reflect any compromise in the patient's medical care. Plan discussed with: Other (VALORIE Vasquez) Critical Care Time(min): 35 IVETT FREEDMAN MD Apr 23, 2025 22:57
[2025-04-24] VITALS (67 sets, daily range): BP systolic 86–117; BP diastolic 51–71; PULSE 69–95; RESP 17–42; TEMP 98.3–100; O2SAT 92–99
[2025-04-24 04:01] LABS: Hematocrit 40.0 % (41.0-53.0); Hemoglobin 13.9 g/dL (13.5-17.5); Mean Corpuscular Hemoglobin 31.9 pg (28.0-32.0); Mean Corpuscular Volume 91.8 fL (80.0-100.0); Nucleated Red Blood Cells % 0.0 %
[2025-04-24 04:09] LABS: Chloride 93 mmol/L (98-107); Potassium 3.5 mmol/L (3.5-5.1); Sodium 136 mmol/L (136-145)
[2025-04-24 04:10] LABS: Anion Gap 7 (5-15); Calcium 9.2 mg/dL (8.7-10.4)
[2025-04-24 04:15] LABS: BUN/Creatinine Ratio 12.0 (10.0-20.0); Blood Urea Nitrogen 12 mg/dL (9-23); Carbon Dioxide 36 mmol/L (20-31); Glucose 122 mg/dL (74-106)
[2025-04-24 04:17] LABS: INR 1.01 (0.9-1.15); Partial Thromboplastin Time 34.2 SEC (24.5-34.5); Prothrombin Time 10.7 sec (9.3-11.8)
--- NOTE | 2025-04-24 04:55 | DVH ---
CHEST RADIOGRAPH Indication: sob Technique: Single frontal view of the chest was obtained Comparison: XY CHEST PORTABLE on DOS: 04/23/25 FINDINGS: Lines and Tubes: None Lungs: Patchy bilateral airspace disease similar to prior study. Pleura: No effusion. No pneumothorax. Cardiomediastinal contours: Unremarkable Bones: No acute osseous abnormality. IMPRESSION: 1. Multifocal airspace disease which may represent pneumonia. Appearance is similar to the prior ronnie dy.
[2025-04-24 06:40] LABS: Base Excess 8.7 mmol/L (-2.0-3.0)
--- NOTE | 2025-04-24 11:40 | MEDREC ---
[facility] ASP Intervention Section I [facility] ASP Intervention: Deescalate AB based on CS, Review courses of therapy (Routine anaerobic coverage for aspiration pneumonia is not recommended unless imaging indicates lung abscess or empyema. Please consider de-escalate zosyn to ceftriaxone (no pseudomonal risk). If doxycycline is used for atypical coverage for CAP, please consider D/C doxycycline after 5 day) HANS JOHNS [facility] RESIDENT Apr 24, 2025 11:40
--- NOTE | 2025-04-24 14:41 | DVHPN2 ---
Progress Note Date Seen: Apr 24, 2025 Medical Necessity Reason Pt with a Central, PICC or Fol: Yes The following are medically ne: Munoz Catheter Reason for munoz catheter: Strict I&O Subjective Patient reports: No new complaints Review of Systems: HEENT:Normal, CVS:Normal, RESPIRATORY:Normal, GI:Normal, :Normal, MSK:Normal, NEURO:Normal Objective vital signs Vital Sign Date Time Temp Pulse Resp B/P (MAP) Pulse Ox O2 Delivery O2 Flow Rate FiO2 04/24/25 14:31 80 31 95 45.0 60 04/24/25 12:30 04/24/25 12:00 Hi-Flow Heated NC+ 04/24/25 12:00 98.8 98.8 Total Intake and Output 04/23/25 04/23/25 04/24/25 15:00 23:00 07:00 Intake Total 850 ml 845 ml 425 ml Output Total 5950 ml 1700 ml Balance 850 ml -5105 ml -1275 ml medications Current Medications Medications Dose Ordered Sig/Ramonita Route Start Time Stop Time Status Last Admin Dose Admin Ondansetron HCl 4 mg Q4HP PRN IV 04/22/25 12:00 Morphine Sulfate 2 mg Q4HPRN PRN IV 04/22/25 12:00 Enoxaparin Sodium 40 mg DAILY SC 04/22/25 12:00 04/27/25 23:55 04/24/25 10:06 40 MG Nitroglycerin 0.4 mg Q5MINP PRN SL 04/22/25 12:00 Morphine Sulfate 2 mg Q30M PRN IV 04/22/25 12:00 Doxycycline Hyclate 100 ml @ 50 mls/hr Q12H IV 04/22/25 12:45 04/24/25 12:58 50 MLS/HR Thiamine HCl 100 mg DAILY IV 04/23/25 10:00 UNV Thiamine HCl 100 mg DAILY PO 04/23/25 10:00 04/24/25 10:06 100 MG Lorazepam 1 mg Q4HP PRN IV 04/22/25 14:15 04/24/25 14:13 1 MG Folic Acid 1 mg DAILY PO 04/23/25 10:00 04/24/25 10:06 1 MG Acetaminophen 650 mg Q6HP PRN PO 04/22/25 18:00 04/22/25 18:01 650 MG Albuterol 2.5 mg Q6HR NEB 04/23/25 12:00 04/24/25 12:10 2.5 MG Ipratropium [place] 0.5 mg Q6HR NEB 04/23/25 12:00 04/24/25 12:10 0.5 MG Piperacillin Sod/ Tazobactam Sod 100 ml @ 25 mls/hr Q6HR IV 04/23/25 12:00 04/24/25 12:58 25 MLS/HR Bumetanide 1 mg BIDD IV 04/23/25 18:00 04/24/25 06:04 1 MG Examination: GENERAL:Normal, HEENT:Normal, NECK:Normal, LUNGS:Normal, LUNGS:Abnormal (on high flow oxygen, rales), CVS:Normal, ABDOMEN:Normal, MSK:Normal, SKIN:Normal, NEURO:Normal, :Normal laboratory and microbiology Laboratory Tests 04/24/25 03:03 Test 04/24/25 03:03 Range/Units Serum Glucose 122 H 74-106 mg/dL Microbiology Date/Time Source Procedure Growth Status 04/23/25 11:51 Sputum Gram Stain - Final Resulted 04/23/25 11:51 Sputum Respiratory Culture - Preliminary Resulted 04/22/25 13:30 Nose MRSA Screen - Final Complete Problem List/Assessment/Plan Problem List/Assessment/Plan #1 acute resp failure: on high flow oxygen #2 pneumonia likely aspiration with sepsis: iv antibiotics #3 h/o alcohol abuse long dw /sister- reviewed labs and plan of care Plan discussed with: Patient, Spouse My Orders My Orders Orders - BRAXTON YU MD Procedure Category Date Status Time Clear Liq Diet DIET 04/24/25 Verified Dinner Pantoprazole PHA 04/24/25 Verified (Protonix) 14:30 Pantoprazole PHA 04/25/25 Verified (Protonix) 10:00 Basic Metabolic Panel LAB 04/25/25 Verified 06:00 Complete Blood Count LAB 04/25/25 Verified 06:00 Chest Portable XY 04/25/25 Verified 06:00 Dietary Evaluation Review Comments: 1) Advance diet as medically feasible 2) Monitor NPO status, lab values, wt trend, I/O Expected Outcomes/Goals: To meet >75% estimated needs Fu 2-3 days Critical Care Time (mins): 41 (critical care time excluding procedures is 41 mins) Date of Service: Apr 24, 2025 Billing Provider: BRAXTON YU MD Common Visit Codes: [id number] CARE 30-74 MIN BRAXTON YU MD Apr 24, 2025 14:41
[2025-04-24] MEDS: PANTOPRAZOLE 40 MG/10 ML VIAL INJ IV ONE (14:54)
[2025-04-24] MEDS: BACLOFEN 10 MG TAB PO ONE (15:18)
[2025-04-25] VITALS (83 sets, daily range): BP systolic 86–120; BP diastolic 47–77; PULSE 58–85; RESP 8–31; TEMP 98.9–100.8; O2SAT 89–98
--- NOTE | 2025-04-25 02:59 | DVH ---
CHEST RADIOGRAPH Indication: pneumonia Technique: 1 view Comparison: XY CHEST PORTABLE on DOS: 04/24/25, XY CHEST PORTABLE on DOS: 04/23/25, XY CHEST PORTABLE o n DOS: 04/22/25 FINDINGS: Lines and Tubes: No invasive devices. Lungs/Pleura: More dense appearance of [id number] mid to upper lung consolidations. No evident pleural abnormality. Cardiomediastinum: Unchanged. Other: Unchanged osseous structures. IMPRESSION: 1. More consolidative appearance of [id number] multifocal airspace disease.
[2025-04-25 04:39] LABS: Hematocrit 39.0 % (41.0-53.0); Hemoglobin 13.8 g/dL (13.5-17.5); Mean Corpuscular Hemoglobin 32.7 pg (28.0-32.0); Mean Corpuscular Volume 92.6 fL (80.0-100.0); Nucleated Red Blood Cells % 0.0 %
[2025-04-25 04:51] LABS: Anion Gap 8 (5-15); Calcium 9.4 mg/dL (8.7-10.4)
[2025-04-25 04:56] LABS: BUN/Creatinine Ratio 14.0 (10.0-20.0); Blood Urea Nitrogen 14 mg/dL (9-23); Glucose 90 mg/dL (74-106)
[2025-04-25 05:19] LABS: Carbon Dioxide 35 mmol/L (20-31); Chloride 93 mmol/L (98-107); Potassium 3.1 mmol/L (3.5-5.1); Sodium 136 mmol/L (136-145)
[2025-04-25 08:39] LABS: Base Excess 9.3 mmol/L (-2.0-3.0)
[2025-04-25] MEDS: POTASSIUM EFFERVESENT TAB 25 MEQ PO ONE (09:06)
[2025-04-25] MEDS: PANTOPRAZOLE 40 MG/10 ML VIAL INJ IV SCH (09:30)
[2025-04-25] MEDS: METOCLOPRAMIDE HCL 5MG/ml INJ 2ml VIAL ONE (10:07)
[2025-04-25] MEDS ORDERED: VANCOMYCIN PER PHARMACY 0 MG IV SCH (15:00)
--- NOTE | 2025-04-25 15:18 | DVHPN2 ---
Progress Note Date Seen: Apr 25, 2025 Medical Necessity Reason Pt with a Central, PICC or Fol: Yes The following are medically ne: Munoz Catheter Reason for munoz catheter: Strict I&O Subjective Patient reports: No new complaints Review of Systems: HEENT:Normal, CVS:Normal, RESPIRATORY:Normal, GI:Normal, :Normal, MSK:Normal, NEURO:Normal Objective vital signs Vital Sign Date Time Temp Pulse Resp B/P (MAP) Pulse Ox O2 Delivery O2 Flow Rate FiO2 04/25/25 14:12 99.3 04/25/25 14:00 24 94 Hi-Flow Heated NC+ 40 55 55 04/25/25 14:00 73 04/25/25 14:00 109/72 (84) Total Intake and Output 04/24/25 04/24/25 04/25/25 15:00 23:00 07:00 Intake Total 225 ml 670 ml 845 ml Output Total 2450 ml 1300 ml Balance 225 ml -1780 ml -455 ml medications Current Medications Medications Dose Ordered Sig/Ramonita Route Start Time Stop Time Status Last Admin Dose Admin Ondansetron HCl 4 mg Q4HP PRN IV 04/22/25 12:00 Morphine Sulfate 2 mg Q4HPRN PRN IV 04/22/25 12:00 Enoxaparin Sodium 40 mg DAILY SC 04/22/25 12:00 04/27/25 23:55 04/25/25 09:31 40 MG Nitroglycerin 0.4 mg Q5MINP PRN SL 04/22/25 12:00 Morphine Sulfate 2 mg Q30M PRN IV 04/22/25 12:00 Thiamine HCl 100 mg DAILY IV 04/23/25 10:00 UNV Thiamine HCl 100 mg DAILY PO 04/23/25 10:00 04/25/25 09:31 100 MG Lorazepam 1 mg Q4HP PRN IV 04/22/25 14:15 04/24/25 23:12 1 MG Folic Acid 1 mg DAILY PO 04/23/25 10:00 04/25/25 09:31 1 MG Acetaminophen 650 mg Q6HP PRN PO 04/22/25 18:00 04/25/25 13:12 650 MG Albuterol 2.5 mg Q6HR NEB 04/23/25 12:00 04/25/25 11:38 2.5 MG Ipratropium [place] 0.5 mg Q6HR NEB 04/23/25 12:00 04/25/25 11:38 0.5 MG Piperacillin Sod/ Tazobactam Sod 100 ml @ 25 mls/hr Q6HR IV 04/23/25 12:00 04/25/25 12:33 25 MLS/HR Pantoprazole Sodium 40 mg DAILY IV 04/25/25 10:00 04/25/25 09:30 40 MG Vancomycin HCl 0 ml @ 0 mls/hr UD IV 04/25/25 15:00 UNV Examination: GENERAL:Normal, HEENT:Normal, NECK:Normal, LUNGS:Normal, CVS:Normal, ABDOMEN:Normal, MSK:Normal, SKIN:Normal, NEURO:Normal, :Normal laboratory and microbiology Laboratory Tests 04/25/25 02:47 Test 04/25/25 02:47 Range/Units Serum Glucose 90 74-106 mg/dL Microbiology Date/Time Source Procedure Growth Status 04/23/25 11:51 Sputum Gram Stain - Final Resulted 04/23/25 11:51 Sputum Respiratory Culture - Preliminary Resulted 04/22/25 13:30 Nose MRSA Screen - Final Complete Problem List/Assessment/Plan Problem List/Assessment/Plan #1 acute resp failure: on high flow oxygen #2 pneumonia likely aspiration with sepsis: iv antibiotics, add vanc #3 h/o alcohol abuse long dw /sister- reviewed labs and plan of care Plan discussed with: Patient My Orders My Orders Orders - BRAXTON YU MD Procedure Category Date Status Time Abg W/ Co-Ox RT 04/25/25 Logged 08:00 Vancomycin Per PHA 04/25/25 Pending Pharmacy 15:00 Full Liq Diet DIET 04/25/25 Verified Dinner Basic Metabolic Panel LAB 04/26/25 Verified 06:00 Complete Blood Count LAB 04/26/25 Verified 06:00 Chest Portable XY 04/26/25 Verified 06:00 Dietary Evaluation Review Comments: 1) Advance diet as medically feasible 2) Monitor NPO status, lab values, wt trend, I/O Expected Outcomes/Goals: To meet >75% estimated needs Fu 2-3 days Critical Care Time (mins): 37 (critical care time excluding procedures is 37 mins) Date of Service: Apr 25, 2025 Billing Provider: BRAXTON YU MD Common Visit Codes: [id number] CARE 30-74 MIN BRAXTON YU MD Apr 25, 2025 15:18
[2025-04-25] MEDS: VANCOMYCIN 1GM/250ML KIT 250 ML IV SCH (15:55)
[2025-04-26] VITALS (62 sets, daily range): BP systolic 99–124; BP diastolic 58–79; PULSE 55–87; RESP 10–29; TEMP 98.9–99.9; O2SAT 90–98
[2025-04-26] MEDS: VANCOMYCIN 1.5GM/250ML 250 ML IV SCH (04:00)
[2025-04-26 04:21] LABS: Hematocrit 39.9 % (41.0-53.0); Hemoglobin 14.0 g/dL (13.5-17.5); Mean Corpuscular Hemoglobin 32.3 pg (28.0-32.0); Mean Corpuscular Volume 92.4 fL (80.0-100.0); Nucleated Red Blood Cells % 0.0 %
[2025-04-26 04:26] LABS: Chloride 99 mmol/L (98-107); Sodium 140 mmol/L (136-145)
[2025-04-26 04:27] LABS: Anion Gap 8 (5-15)
[2025-04-26 04:28] LABS: Calcium 9.6 mg/dL (8.7-10.4)
[2025-04-26 04:33] LABS: BUN/Creatinine Ratio 11.7 (10.0-20.0); Blood Urea Nitrogen 11 mg/dL (9-23); Glucose 104 mg/dL (74-106)
[2025-04-26 04:39] LABS: Carbon Dioxide 33 mmol/L (20-31); Potassium 3.2 mmol/L (3.5-5.1)
--- NOTE | 2025-04-26 04:58 | DVH ---
CHEST RADIOGRAPH Indication: RESP FAILURE Technique: Single frontal view of the chest was obtained Comparison: XY CHEST PORTABLE on DOS: 04/25/25 FINDINGS: Lines and Tubes: None Lungs: Hazy bilateral opacities, decreased. Pleura: No effusion. No pneumothorax. Cardiomediastinal contours: Unremarkable Bones: No acute osseous abnormality. IMPRESSION: 1. Decreased bilateral upper lobe opacities representing improved atelectasis or pneumonia.
[2025-04-26] MEDS: POTASSIUM EFFERVESENT TAB 25 MEQ PO ONE (06:10)
--- NOTE | 2025-04-26 11:45 | MEDREC ---
[facility] ASP Intervention Section I [facility] ASP Intervention: Deescalate AB based on CS, Review courses of therapy (MRSA nares final and negative. Test has high specificity for ruling out MRSA in pneumonia patients. May consider d/cing vancomycin if/when clinically appropriate.) ALL[facility]ERVANTES [facility] RESIDENT Apr 26, 2025 11:45
--- NOTE | 2025-04-26 14:26 | DVHPN2 ---
Progress Note Date Seen: Apr 26, 2025 Medical Necessity Reason Pt with a Central, PICC or Fol: Yes The following are medically ne: Munoz Catheter Reason for munoz catheter: Strict I&O Subjective Patient reports: No new complaints Review of Systems: HEENT:Normal, CVS:Normal, RESPIRATORY:Normal, GI:Normal, :Normal, MSK:Normal, NEURO:Normal Objective vital signs Vital Sign Date Time Temp Pulse Resp B/P (MAP) Pulse Ox O2 Delivery O2 Flow Rate FiO2 04/26/25 14:00 70 04/26/25 14:00 14 121/76 (91) 92 04/26/25 14:00 Hi-Flow Heated NC+ 35 35 35 04/26/25 12:00 99.9 99.9 Total Intake and Output 04/25/25 04/25/25 04/26/25 15:00 23:00 07:00 Intake Total 345 ml 2200 ml 1115 ml Output Total 2600 ml 1350 ml Balance 345 ml -400 ml -235 ml medications Current Medications Medications Dose Ordered Sig/Ramonita Route Start Time Stop Time Status Last Admin Dose Admin Ondansetron HCl 4 mg Q4HP PRN IV 04/22/25 12:00 Morphine Sulfate 2 mg Q4HPRN PRN IV 04/22/25 12:00 Enoxaparin Sodium 40 mg DAILY SC 04/22/25 12:00 04/27/25 23:55 04/26/25 09:25 40 MG Nitroglycerin 0.4 mg Q5MINP PRN SL 04/22/25 12:00 Morphine Sulfate 2 mg Q30M PRN IV 04/22/25 12:00 Thiamine HCl 100 mg DAILY IV 04/23/25 10:00 UNV Thiamine HCl 100 mg DAILY PO 04/23/25 10:00 04/26/25 09:26 100 MG Lorazepam 1 mg Q4HP PRN IV 04/22/25 14:15 04/24/25 23:12 1 MG Folic Acid 1 mg DAILY PO 04/23/25 10:00 04/26/25 09:26 1 MG Acetaminophen 650 mg Q6HP PRN PO 04/22/25 18:00 04/25/25 18:19 650 MG Albuterol 2.5 mg Q6HR NEB 04/23/25 12:00 04/26/25 11:32 2.5 MG Ipratropium [place] 0.5 mg Q6HR NEB 04/23/25 12:00 04/26/25 11:32 0.5 MG Piperacillin Sod/ Tazobactam Sod 100 ml @ 25 mls/hr Q6HR IV 04/23/25 12:00 04/26/25 11:20 25 MLS/HR Pantoprazole Sodium 40 mg DAILY IV 04/25/25 10:00 04/26/25 09:25 40 MG Vancomycin HCl 0 ml @ 0 mls/hr UD IV 04/25/25 15:00 Vancomycin HCl 250 ml @ 166.667 mls/hr Q12H IV 04/26/25 04:00 04/26/25 04:00 166.667 MLS/HR Examination: GENERAL:Normal, HEENT:Normal, NECK:Normal, LUNGS:Normal, LUNGS:Abnormal (on high flow oxygen), CVS:Normal, ABDOMEN:Normal, MSK:Normal, SKIN:Normal, NEURO:Normal, :Normal laboratory and microbiology Laboratory Tests 04/26/25 03:15 Test 04/26/25 03:15 Range/Units Serum Glucose 104 74-106 mg/dL Microbiology Date/Time Source Procedure Growth Status 04/23/25 11:51 Sputum Gram Stain - Final Resulted 04/23/25 11:51 Respiratory Culture - Preliminary Klebsiella pneumoniae Resulted 04/22/25 13:30 Nose MRSA Screen - Final Complete Problem List/Assessment/Plan Problem List/Assessment/Plan #1 acute resp failure: on high flow oxygen- wean as tolerated #2 pneumonia likely aspiration with sepsis/kleb pneumonia: iv antibiotics, add vanc #3 h/o alcohol abuse long dw - reviewed labs and plan of care Plan discussed with: Patient, Spouse My Orders My Orders Orders - BRAXTON YU MD Procedure Category Date Status Time Vancomycin Per PHA 04/25/25 In Process Pharmacy 15:00 Full Liq Diet DIET 04/25/25 Transmitted Dinner Chest Portable XY 04/26/25 Resulted 06:00 Vancomycin PHA 04/26/25 In Process 1.5gm/250ml 04:00 Vancomycin,Trough LAB 04/27/25 Verified 03:00 Vancomycin Per KJ 04/27/25 In Process Pharmacy Protoc 04:00 Creatinine LAB 04/27/25 Verified 03:00 Dietary Evaluation Review Comments: 1) Advance diet as medically feasible 2) Monitor NPO status, lab values, wt trend, I/O Expected Outcomes/Goals: To meet >75% estimated needs Fu 2-3 days Critical Care Time (mins): 38 (critical care time 38mins) Date of Service: Apr 26, 2025 Billing Provider: BRAXTON YU MD Common Visit Codes: [id number] CARE 30-74 MIN BRAXTON YU MD Apr 26, 2025 14:25
[2025-04-27] VITALS (54 sets, daily range): BP systolic 93–128; BP diastolic 54–88; PULSE 59–90; RESP 10–61; TEMP 97.5–99.1; O2SAT 91–100
[2025-04-27] MEDS: TEMAZEPAM 15 MG CAP PO ONE (01:13)
[2025-04-27 03:48] LABS: Chloride 100 mmol/L (98-107); Hematocrit 40.4 % (41.0-53.0); Hemoglobin 14.0 g/dL (13.5-17.5); Mean Corpuscular Hemoglobin 32.0 pg (28.0-32.0); Mean Corpuscular Volume 92.3 fL (80.0-100.0); Nucleated Red Blood Cells % 0.0 %; Sodium 141 mmol/L (136-145)
[2025-04-27 03:49] LABS: Anion Gap 8 (5-15); Calcium 9.8 mg/dL (8.7-10.4)
[2025-04-27 03:54] LABS: BUN/Creatinine Ratio 9.1 (10.0-20.0); Blood Urea Nitrogen 13 mg/dL (9-23)
[2025-04-27 03:56] LABS: Carbon Dioxide 33 mmol/L (20-31); Glucose 117 mg/dL (74-106); Potassium 3.1 mmol/L (3.5-5.1)
--- NOTE | 2025-04-27 05:33 | DVH ---
CHEST RADIOGRAPH Indication: pneumonia Technique: Single frontal view of the chest was obtained Comparison: XY CHEST PORTABLE on DOS: 04/26/25 FINDINGS: Lines and Tubes: None Lungs: Bilateral opacities upper lobe predominant similar to prior study. Pleura: No effusion. No pneumothorax. Cardiomediastinal contours: Unremarkable Bones: No acute osseous abnormality. IMPRESSION: 1. Bilateral upper lobe predominant opacities in the lungs similar to prior study suggestive of pneum onia.
[2025-04-27] MEDS: POTASSIUM CHL 20MEQ/100ML 100 ML IV ONE (05:51)
--- NOTE | 2025-04-27 11:40 | MEDREC ---
[facility] ASP Intervention Section I [facility] ASP Intervention: Deescalate AB based on CS (Please de-escalate antibiotics (D/C vancomycin and zosyn) based on susceptibilities. Ampicillin/Sulbactam is susceptible for Klebsiella pneumoniae and a drug of choice for streptococcus group F), Review courses of therapy (MRSA nares final and negative. Test has high specificity for ruling out MRSA in pneumonia patients. May consider d/cing vancomycin if/when clinically appropriate.) HANS JOHNS [facility] RESIDENT Apr 27, 2025 11:40
[2025-04-27] MEDS: POTASSIUM CHL 20 Meq TABLET PO ONE (12:23)
--- NOTE | 2025-04-27 14:18 | DVHDS2 ---
Discharge Summary Date of Admission Apr 22, 2025 at 11:50 Date of Discharge: Apr 27, 2025 Labs/Diagnostic Data: Laboratory Results Test 04/27/25 02:43 04/25/25 08:29 04/24/25 03:03 04/23/25 14:15 White Blood Count 11.2 10^3/uL (4.4-10.8) Red Blood Count 4.37 10^6/uL (4.5-5.90) Hemoglobin 14.0 g/dL (13.5-17.5) Hematocrit 40.4 % (41.0-53.0) Mean Corpuscular Volume 92.3 fL (80.0-100.0) Mean Corpuscular Hemoglobin 32.0 pg (28.0-32.0) Mean Corpuscular Hemoglobin Concent 34.7 g/dL (32.0-36.0) Red Cell Distribution Width 13.5 % (11.8-14.3) Platelet Count 285 10^3/uL (140-450) Mean Platelet Volume 8.5 fL (6.9-10.8) Neutrophils (%) (Auto) 72.0 % (37.0-80.0) Lymphocytes (%) (Auto) 13.6 % (10.0-50.0) Monocytes (%) (Auto) 11.5 % (0.0-12.0) Eosinophils (%) (Auto) 2.8 % (0.0-7.0) Basophils (%) (Auto) 0.1 % (0.0-2.0) Neutrophils # (Auto) 8.1 10 ^3/uL (1.6-8.6) Lymphocytes # (Auto) 1.5 10 ^3/uL (0.4-5.4) Monocytes # (Auto) 1.3 10 ^3/uL (0-1.3) Eosinophils # (Auto) 0.3 10 ^3/uL (0-0.8) Basophils # (Auto) 0 10 ^3/uL (0-0.2) Nucleated Red Blood Cells 0.0 % Sodium Level 141 mmol/L (136-145) Potassium Level 3.1 mmol/L (3.5-5.1) Chloride Level 100 mmol/L (98-107) Carbon Dioxide Level 33 mmol/L (20-31) Anion Gap 8 (5-15) Blood Urea Nitrogen 13 mg/dL (9-23) Creatinine 1.43 mg/dL (0.700-1.30) Glomerular Filtration Rate Calc 60 mL/min (>90) BUN/Creatinine Ratio 9.1 (10.0-20.0) Serum Glucose 117 mg/dL (74-106) Calcium Level 9.8 mg/dL (8.7-10.4) Vancomycin Level Trough 14.8 ug/mL (5-10) Blood Gas Specimen Type Arterial Blood Gas Sample Site Left radial Blood Gas Patient Temperature 37.0 Arterial Blood Date Drawn [id number] Arterial Blood pH 7.490 (7.350-7.450) Arterial Blood Partial Pressure CO2 45.5 mmHg (35.0-48.0) Arterial Blood Partial Pressure O2 96.1 mmHg (83.0-108.0) Arterial Blood HCO3 33.9 mmol/L (21.0-28.0) Arterial Blood Oxygen Saturation 97.5 % (94.0-98.0) Arterial Blood Base Excess 9.3 mmol/L (-2.0-3.0) Arterial Blood Oxyhemoglobin 97.1 % (94.0-98.0) Arterial Blood Carboxyhemoglobin 0.1 % (0.5-1.5) Arterial Blood Methemoglobin 0.3 % (0.0-1.5) Luis A Test Yes Blood Gas Total Hemoglobin 14.70 g/dL (13.5-17.5) Blood Gas Liter Flow 40.00 Blood Gas Modality High flow FiO2 % 60.0 Prothrombin Time 10.7 sec (9.3-11.8) Prothrombin Time INR 1.01 (0.9-1.15) Activated Partial Thromboplast Time 34.2 SEC (24.5-34.5) Lactic Acid Level 1.1 mmol/L (0.4-2.0) B-Type Natriuretic Peptide 73.93 pg/mL (0-100) Thyroid Stimulating Hormone (TSH) 0.36 uIU/mL (0.55-4.78) HIV (1&2) Antibody Negative (Negative) Test 04/23/25 05:33 04/23/25 03:04 04/22/25 13:30 04/22/25 11:02 Blood Gas Set Respiration Rate 12.0 Blood Gas EPAP 8 Blood Gas IPAP 12 Hemoglobin A1c 5.1 % A1C (<5.7) Total Bilirubin 0.6 mg/dL (0.2-1.0) Aspartate Amino Transferase (AST) 60 U/L (13-40) Alanine Aminotransferase (ALT) 34 U/L (7-40) Alkaline Phosphatase 36 U/L (46-116) Total Protein 6.5 g/dL (5.7-8.2) Albumin 3.9 g/dL (3.2-4.8) Influenza Type A Antigen Negative (Negative) Influenza Type B Antigen Negative (Negative) SARS-CoV-2 Antigen (Rapid) Negative (NEGATIVE) Blood Gas Critical Value Read Back Yes Test 04/22/25 08:39 04/22/25 05:18 04/22/25 03:40 04/22/25 02:30 Blood Gas Notified Whom Dr. norris rm Blood Gas Notified Time [id number] Blood Gas Notified By Troponin I High Sensitivity 38 ng/L (</=54) Lipase 31 U/L (12-53) Urine Color Colorless (Yellow) Urine Clarity Clear (Clear) Urine pH 5.5 (5.0-9.0) Urine Specific [place] 1.008 (1.001-1.035) Urine Protein Negative (Negative) Urine Ketones Negative (Negative) Urine Blood Negative /uL (Negative) Urine Nitrite Negative (Negative) Urine Bilirubin Negative (Negative) Urine Urobilinogen Normal mg/dL (Negative) Urine Leukocyte Esterase Negative /uL (Negative) Urine RBC 1 /hpf (0 - 3) Urine Microscopic WBC 1 /HPF (0-3) Urine Squamous Epithelial Cells None seen /hpf (<5) Urine Bacteria None seen /hpf (None Seen) Urine Hyaline Casts Few /lpf (0 - 2) Urine Glucose 3+ mg/dL (Normal) Urine Opiates Screen Neg (NEGATIVE) Urine Fentanyl Screen Pos (NEGATIVE) Urine Barbiturates Screen Neg (NEGATIVE) Urine Phencyclidine Screen Neg (NEGATIVE) Urine Amphetamines Screen Neg (NEGATIVE) Urine Benzodiazepines Screen Neg (NEGATIVE) Urine Cocaine Screen Neg (NEGATIVE) Urine Cannabinoids Screen Neg (NEGATIVE) Magnesium Level 2.2 mg/dL (1.6-2.6) Plasma/Serum Blood Alcohol 150.1 mg/dL (<10) Other Laboratory Tests 04/27/25 02:43 Brief Hx & Hospital Course: SEE DICTATED NOTE Condition at Discharge: Fair Final Diagnosis/Problems List PNEUMONIA Discharge Disposition: Acute Care Facility Discharge Instruct/Medications Diet: Regular Activity: No Restrictions, As Tolerated Follow Up/Referral: FU WITH [facility] Medications: PER OCT Discharge Statement: "Patient was advised to return to the ER or call 911 if any headaches, dizziness, shortness of breath, chest pain, abdominal pain, bleeding, fevers, or worsening of medical condition. Patient was counseled about treatment plan, medications, possible side effects, patientverbalized understanding. All questions were answered to the best of my ability. This discharge took greater then 30 minutes in planning, reviewing documentation, counseling the patient, and discussing with other team members." ASSESSMENT ASSESSMENT Assessment PNEUMONIA Date of Service: Apr 27, 2025 Billing Provider: BRAXTON YU MD Common Visit Codes: [id number] CARE 30-74 MIN BRAXTON YU MD Apr 27, 2025 14:18
--- NOTE | 2025-04-27 15:00 | DVHDS ---
HISTORY OF PRESENT ILLNESS: The patient is a 50-year-old gentleman who was admitted with history of altered level of consciousness and cardiac arrest needing CPR. HOSPITAL COURSE: The patient was in acute respiratory failure. The patient had CT angiography that was negative for PE, but showed extensive multifocal pneumonia. The patient was placed on broad-spectrum antibiotics. The patient was febrile. His sputum cultures grew Klebsiella pneumoniae and Streptococcus. The patient had elevated lactic acid. He had Doppler of lower extremity that was negative for DVT. The patient is now improved in the symptoms and will be transferred to [place] for further management. The patient's creatinine at time of transfer is elevated at 1.4. FINAL DIAGNOSES: * Acute respiratory failure. * Pneumonia with sepsis likely secondary to aspiration. * History of alcohol abuse. * Acute renal failure, questionable vasomotor nephropathy. Critical care time spent including review of plan with the patient and family at bedside was 38 minutes. MD IONA Brooke/JETHRO TID: [id number] RECEIPT: [id number]
[2025-04-27] MEDS: TEMAZEPAM 15 MG CAP PO PRN (23:19)
[2025-04-28] VITALS (43 sets, daily range): BP systolic 96–121; BP diastolic 57–72; PULSE 59–93; RESP 11–94; TEMP 98–98.7; O2SAT 89–100
[2025-04-28 03:46] LABS: Chloride 100 mmol/L (98-107); Sodium 141 mmol/L (136-145)
[2025-04-28 03:47] LABS: Anion Gap 10 (5-15); Calcium 9.6 mg/dL (8.7-10.4)
[2025-04-28 03:52] LABS: BUN/Creatinine Ratio 6.9 (10.0-20.0); Blood Urea Nitrogen 12 mg/dL (9-23)
[2025-04-28 03:57] LABS: Carbon Dioxide 31 mmol/L (20-31); Glucose 118 mg/dL (74-106); Potassium 3.3 mmol/L (3.5-5.1)
[2025-04-28 04:11] LABS: Hematocrit 41.6 % (41.0-53.0); Hemoglobin 13.9 g/dL (13.5-17.5); Mean Corpuscular Hemoglobin 32.3 pg (28.0-32.0); Mean Corpuscular Volume 96.5 fL (80.0-100.0); Nucleated Red Blood Cells % 0.0 %
[2025-04-28] MEDS: PANTOPRAZOLE 40 MG TAB PO SCH (05:33)
[2025-04-28] MEDS ORDERED: POTASSIUM CHL 20MEQ/100ML 100 ML IV ONE (10:00)
[2025-04-28] MEDS: POTASSIUM EFFERVESENT TAB 25 MEQ GT ONE (11:13)
--- NOTE | 2025-04-28 13:35 | DVHPN2 ---
Assessment/Plan Assessment/Plan ICU notes The patient is a 50-year-old gentleman who was admitted with history of altered level of consciousness and cardiac arrest needing CPR. The patient was in acute respiratory failure. The patient had CT angiography that was negative for PE, but showed extensive multifocal pneumonia. The patient was placed on broad-spectrum antibiotics. The patient was febrile. His sputum cultures grew Klebsiella pneumoniae and Streptococcus. The patient had elevated lactic acid. He had Doppler of lower extremity that was negative for DVT. The patient is now improved in the symptoms and will be transferred to [place] for further management. seen today during rounds, having BM, conditions unchaged Physical exam AOx3 LEATHA MMM coarse breath soudns on 5L O2 NC s1 s2 rrr abdomen soft LE edema labs ekg imaging reviewed assessment and plan acute hypoxic RF PNA klebsiellla and streptococcus sepsis alcohol use MINOO possible vmn transfer to [facility]ter c/w abx c/w o2 sup maintain spo2 >88 replete K diet reg dvt ppx lovenox full code critical care time 40 minutes Plan discussed with: Patient Date of Service: Apr 28, 2025 Billing Provider: LASHANDA YUEN MD Common Visit Codes: [id number] INP/OBS CARE(HIGH) LASHANDA YUEN MD Apr 28, 2025 13:35
[2025-04-29] VITALS (14 sets, daily range): BP systolic 115–121; BP diastolic 63–78; PULSE 59–79; RESP 18–20; TEMP 98.1–98.2; O2SAT 92–100
[2025-04-29] MEDS: PIPERACILLIN-TAZO 4.5GM 100 ML IV SCH (01:52)
[2025-04-29 07:51] LABS: Hematocrit 38.6 % (41.0-53.0); Hemoglobin 13.5 g/dL (13.5-17.5); Mean Corpuscular Hemoglobin 32.7 pg (28.0-32.0); Mean Corpuscular Volume 93.2 fL (80.0-100.0); Nucleated Red Blood Cells % 0.0 %
[2025-04-29 07:54] LABS: Anion Gap 10 (5-15); Chloride 99 mmol/L (98-107); Sodium 140 mmol/L (136-145)
[2025-04-29 07:55] LABS: Calcium 9.3 mg/dL (8.7-10.4)
[2025-04-29 07:59] LABS: Carbon Dioxide 31 mmol/L (20-31); Potassium 3.3 mmol/L (3.5-5.1)
[2025-04-29 08:00] LABS: BUN/Creatinine Ratio 7.9 (10.0-20.0); Blood Urea Nitrogen 13 mg/dL (9-23)
[2025-04-29 08:12] LABS: Glucose 101 mg/dL (74-106)
[2025-04-29] MEDS: SODIUM CHLORIDE 0.9% 1,000 ML IV ONE (09:30)
--- NOTE | 2025-04-29 15:47 | DVHDS2 ---
Discharge Summary Date of Admission Apr 22, 2025 at 11:50 Date of Discharge: Apr 27, 2025 Labs/Diagnostic Data: Laboratory Results Test 04/29/25 06:53 04/27/25 02:43 04/25/25 08:29 04/24/25 03:03 White Blood Count 10.4 10^3/uL (4.4-10.8) Red Blood Count 4.14 10^6/uL (4.5-5.90) Hemoglobin 13.5 g/dL (13.5-17.5) Hematocrit 38.6 % (41.0-53.0) Mean Corpuscular Volume 93.2 fL (80.0-100.0) Mean Corpuscular Hemoglobin 32.7 pg (28.0-32.0) Mean Corpuscular Hemoglobin Concent 35.1 g/dL (32.0-36.0) Red Cell Distribution Width 13.7 % (11.8-14.3) Platelet Count 364 10^3/uL (140-450) Mean Platelet Volume 8.2 fL (6.9-10.8) Neutrophils (%) (Auto) 66.0 % (37.0-80.0) Lymphocytes (%) (Auto) 20.5 % (10.0-50.0) Monocytes (%) (Auto) 8.5 % (0.0-12.0) Eosinophils (%) (Auto) 4.6 % (0.0-7.0) Basophils (%) (Auto) 0.4 % (0.0-2.0) Neutrophils # (Auto) 6.9 10 ^3/uL (1.6-8.6) Lymphocytes # (Auto) 2.1 10 ^3/uL (0.4-5.4) Monocytes # (Auto) 0.9 10 ^3/uL (0-1.3) Eosinophils # (Auto) 0.5 10 ^3/uL (0-0.8) Basophils # (Auto) 0 10 ^3/uL (0-0.2) Nucleated Red Blood Cells 0.0 % Sodium Level 140 mmol/L (136-145) Potassium Level 3.3 mmol/L (3.5-5.1) Chloride Level 99 mmol/L (98-107) Carbon Dioxide Level 31 mmol/L (20-31) Anion Gap 10 (5-15) Blood Urea Nitrogen 13 mg/dL (9-23) Creatinine 1.65 mg/dL (0.700-1.30) Glomerular Filtration Rate Calc 51 mL/min (>90) BUN/Creatinine Ratio 7.9 (10.0-20.0) Serum Glucose 101 mg/dL (74-106) Calcium Level 9.3 mg/dL (8.7-10.4) Vancomycin Level Trough 14.8 ug/mL (5-10) Blood Gas Specimen Type Arterial Blood Gas Sample Site Left radial Blood Gas Patient Temperature 37.0 Arterial Blood Date Drawn [id number] Arterial Blood pH 7.490 (7.350-7.450) Arterial Blood Partial Pressure CO2 45.5 mmHg (35.0-48.0) Arterial Blood Partial Pressure O2 96.1 mmHg (83.0-108.0) Arterial Blood HCO3 33.9 mmol/L (21.0-28.0) Arterial Blood Oxygen Saturation 97.5 % (94.0-98.0) Arterial Blood Base Excess 9.3 mmol/L (-2.0-3.0) Arterial Blood Oxyhemoglobin 97.1 % (94.0-98.0) Arterial Blood Carboxyhemoglobin 0.1 % (0.5-1.5) Arterial Blood Methemoglobin 0.3 % (0.0-1.5) Luis A Test Yes Blood Gas Total Hemoglobin 14.70 g/dL (13.5-17.5) Blood Gas Liter Flow 40.00 Blood Gas Modality High flow FiO2 % 60.0 Prothrombin Time 10.7 sec (9.3-11.8) Prothrombin Time INR 1.01 (0.9-1.15) Activated Partial Thromboplast Time 34.2 SEC (24.5-34.5) Lactic Acid Level 1.1 mmol/L (0.4-2.0) B-Type Natriuretic Peptide 73.93 pg/mL (0-100) Test 04/23/25 14:15 04/23/25 05:33 04/23/25 03:04 04/22/25 13:30 Thyroid Stimulating Hormone (TSH) 0.36 uIU/mL (0.55-4.78) HIV (1&2) Antibody Negative (Negative) Blood Gas Set Respiration Rate 12.0 Blood Gas EPAP 8 Blood Gas IPAP 12 Hemoglobin A1c 5.1 % A1C (<5.7) Total Bilirubin 0.6 mg/dL (0.2-1.0) Aspartate Amino Transferase (AST) 60 U/L (13-40) Alanine Aminotransferase (ALT) 34 U/L (7-40) Alkaline Phosphatase 36 U/L (46-116) Total Protein 6.5 g/dL (5.7-8.2) Albumin 3.9 g/dL (3.2-4.8) Influenza Type A Antigen Negative (Negative) Influenza Type B Antigen Negative (Negative) SARS-CoV-2 Antigen (Rapid) Negative (NEGATIVE) Test 04/22/25 11:02 04/22/25 08:39 04/22/25 05:18 04/22/25 03:40 Blood Gas Critical Value Read Back Yes Blood Gas Notified Whom Dr. norris rm Blood Gas Notified Time [id number] Blood Gas Notified By Troponin I High Sensitivity 38 ng/L (</=54) Lipase 31 U/L (12-53) Urine Color Colorless (Yellow) Urine Clarity Clear (Clear) Urine pH 5.5 (5.0-9.0) Urine Specific [place] 1.008 (1.001-1.035) Urine Protein Negative (Negative) Urine Ketones Negative (Negative) Urine Blood Negative /uL (Negative) Urine Nitrite Negative (Negative) Urine Bilirubin Negative (Negative) Urine Urobilinogen Normal mg/dL (Negative) Urine Leukocyte Esterase Negative /uL (Negative) Urine RBC 1 /hpf (0 - 3) Urine Microscopic WBC 1 /HPF (0-3) Urine Squamous Epithelial Cells None seen /hpf (<5) Urine Bacteria None seen /hpf (None Seen) Urine Hyaline Casts Few /lpf (0 - 2) Urine Glucose 3+ mg/dL (Normal) Urine Opiates Screen Neg (NEGATIVE) Urine Fentanyl Screen Pos (NEGATIVE) Urine Barbiturates Screen Neg (NEGATIVE) Urine Phencyclidine Screen Neg (NEGATIVE) Urine Amphetamines Screen Neg (NEGATIVE) Urine Benzodiazepines Screen Neg (NEGATIVE) Urine Cocaine Screen Neg (NEGATIVE) Urine Cannabinoids Screen Neg (NEGATIVE) Test 04/22/25 02:30 Magnesium Level 2.2 mg/dL (1.6-2.6) Plasma/Serum Blood Alcohol 150.1 mg/dL (<10) Other Laboratory Tests 04/29/25 06:53 Brief Hx & Hospital Course: The patient is a 50-year-old gentleman who was admitted with history of altered level of consciousness and cardiac arrest needing CPR. The patient was in acute respiratory failure. The patient had CT angiography that was negative for PE, but showed extensive multifocal pneumonia. The patient was placed on broad-spectrum antibiotics. The patient was febrile. His sputum cultures grew Klebsiella pneumoniae and Streptococcus. The patient had elevated lactic acid. He had Doppler of lower extremity that was negative for DVT. The patient is now improved in the symptoms and will be transferred to [facility] for further management. still with o2 recs Condition at Discharge: Fair Final Diagnosis/Problems List acute hypoxic RF PNA klebsiellla and streptococcus sepsis alcohol use MINOO possible vmn Discharge Disposition: Acute Care Facility Discharge Instruct/Medications Diet: Regular Activity: No Restrictions, As Tolerated Follow Up/Referral: FU WITH [facility] [place] Medications: PER OCT No Active Prescriptions or Reported Meds Discharge Statement: "Patient was advised to return to the ER or call 911 if any headaches, dizziness, shortness of breath, chest pain, abdominal pain, bleeding, fevers, or worsening of medical condition. Patient was counseled about treatment plan, medications, possible side effects, patientverbalized understanding. All questions were answered to the best of my ability. This discharge took greater then 30 minutes in planning, reviewing documentation, counseling the patient, and discussing with other team members." ASSESSMENT ASSESSMENT Assessment PNEUMONIA Date of Service: Apr 29, 2025 Billing Provider: LASHANDA YUEN MD Common Visit Codes: [id number] INP/OBS CARE(HIGH) LASHANDA YUEN MD Apr 29, 2025 15:47
[2025-04-29] MEDS: POTASSIUM EFFERVESENT TAB 25 MEQ PO ONE (18:00)
--- NOTE | 2025-04-29 23:15 | DVHPN2 ---
Progress Note - Dictate Date Seen: Apr 29, 2025 Medical Necessity Reason Pt with a Central, PICC or Fol: Yes The following are medically ne: Munoz Catheter Reason for munoz catheter: Strict I&O Subjective Patient seen and examined at bedside. On supplemental oxygen Overnight events reviewed. vital signs Vital Sign Date Time Temp Pulse Resp B/P (MAP) Pulse Ox O2 Delivery O2 Flow Rate FiO2 04/29/25 18:51 64 18 99 04/29/25 18:45 Nasal Cannula* 3 32 04/29/25 17:00 98.1 121/78 (92) 98.1 Total Intake and Output 04/28/25 04/28/25 04/29/25 15:00 23:00 07:00 Intake Total 2200 ml 1000 ml 1100 ml Output Total 800 ml Balance 2200 ml 1000 ml 300 ml medications Current Medications Medications Dose Ordered Sig/Ramonita Route Start Time Stop Time Status Last Admin Dose Admin Thiamine HCl 100 mg DAILY IV 04/23/25 10:00 UNV objective Gen.: Patient lying in bed in no apparent distress. On supplemental oxygen. Head: Normocephalic, atraumatic. Eyes: EOMI/PERRLA. Ears: Normal hearing. Normal anatomy. Neck/trachea: Trachea midline, supple. Nose: Normal external anatomy. Mouth: Moist mucous membranes. Chest: Decreased air entry bilaterally. No wheezing or rhonchi. Cardiovascular: Positive S1, positive S2. Regular rate and rhythm. Abdomen: Positive bowel sounds in all 4 quadrants. Soft, non-tender, non- distended. : Deferred. Rectal: Deferred. Skin: Warm, dry. Intact. Extremities: 2+ radial pulses bilaterally. No lower extremity edema. Neuro: Awake, alert, oriented x3. No gross motor or sensory deficits. Cranial nerves II through XII intact. Gait not assessed. laboratory and microbiology Laboratory Tests 04/29/25 06:53 Test 04/29/25 06:53 Range/Units Serum Glucose 101 74-106 mg/dL Assessment/Plan Impression: Acute hypoxic respiratory failure Dependence on supplemental oxygen Multifocal pneumonia Atelectasis Lactic acidosis Plan: Patient transitioned from BiPAP Currently on high flow O2 at 60 LPM, FiO2 90% Titrate to keep O2 sats above 92%. Taper O2 as tolerated, transition to low flow BiPAP PRN Monitor respiratory status closely d/t increased oxygen requirements CXR notable for persistent bilateral multifocal airspace disease. Continue bronchodilators. Continue antibiotics Incentive spirometry Diurese with Bumex as tolerated Monitor renal function. Monitor electrolytes. Supplement as necessary. Monitor ins and outs. Lactic acid level normalized. DVT prophylaxis. Prognosis: Poor given patient's multiple co-morbidities. Condition: Critical Rest of plan per hospitalist and other consultants. A total of 35 minutes of critical care time was spent reviewing the patient record, examining the patient, making a diagnostic and therapeutic plan, discussing this plan with the medical personnel, following up on diagnostic studies and following the patient for clinical stability excluding any and all procedures. At least 50% of this time was spent in direct, [id number] contact. Thank you, Dr. Dumont, for allowing me to participate in this patient's care. Further recommendations will depend on the patient's clinical course. Please do not hesitate to contact me if you have any questions or concerns. This medical document was created using an electronic medical record system with [employer] computerized dictation system. Although these documentations are being carefully reviewed, there may still be some phonetic and typographical changes. The errors are purely typographical, due to imperfection on the software program, and do not reflect any compromise in the patient's medical care. Dietary Evaluation Review Comments: 1) Advance diet as medically feasible 2) Monitor NPO status, lab values, wt trend, I/O Expected Outcomes/Goals: To meet >75% estimated needs Fu 2-3 days IVETT FREEDMAN MD Apr 29, 2025 23:15
== END 2025-04-29 21:04 | disposition short-term general hospital (02) | DRG 871 ==
LOC: EDBD 02:01 → ER 02:07 → OVERFLOW 11:50 → ICU WEST 14:25 → TELE-EAST 04-28 15:05
PROVIDERS: ADMIT Student in an Organized Health Care Education/Training Program; ATTEND Student in an Organized Health Care Education/Training Program
PROC: 5A09357 Assistance with Respiratory Ventilation, Less than 24 Consecutive Hours, Continuous Positive Airway Pressure (ICD-10-PCS; principal; 2025-04-22)
PROC: 5A09357 Assistance with Respiratory Ventilation, Less than 24 Consecutive Hours, Continuous Positive Airway Pressure (ICD-10-PCS; 2025-04-23)
PROC: 5A09357 Assistance with Respiratory Ventilation, Less than 24 Consecutive Hours, Continuous Positive Airway Pressure (ICD-10-PCS; 2025-04-24)
DX: A41.9 Sepsis, unspecified organism (principal); G92.8 Other toxic encephalopathy; I46.9 Cardiac arrest, cause unspecified; N17.0 Acute kidney failure with tubular necrosis; J96.01 Acute respiratory failure with hypoxia; J69.0 Pneumonitis due to inhalation of food and vomit; E87.20 Acidosis, unspecified; F10.139 Alcohol abuse with withdrawal, unspecified; J98.11 Atelectasis; E83.51 Hypocalcemia; E87.6 Hypokalemia; K76.89 Other specified diseases of liver; F10.129 Alcohol abuse with intoxication, unspecified; B96.1 Klebsiella pneumoniae [K. pneumoniae] as the cause of diseases classified elsewhere; Z99.81 Dependence on supplemental oxygen; Z86.74 Personal history of sudden cardiac arrest; T50.991A Poisoning by other drugs, medicaments and biological substances, accidental (unintentional), initial encounter; Y92.89 Other specified places as the place of occurrence of the external cause
CPT/HCPCS: 36415; 36600; 70450; 71045; 71275; 80048; 80053; 80202; 80307; 80320; 81001; 82805; 83036; 83605; 83690; 83735; 83880; 84443; 84484; 85025; 85610; 85730; 86703; 87070; 87077; 87081; 87186; 87205; 87426; 87804; 93005; 93306; 93970; 94640; 94660; 96365; 96375; 99291; G0378; J1100; J2405; J2470; J2543; J3480; J7060